=== PATIENT | male | born 1970 | race Caucasian/White ===

== ENCOUNTER → 2020-11-01 14:42 | Outpatient (BNVA) | payer BC, SELFPAY | PROVIDERS: Family Provider Social Worker; PCP Family Medicine; Referring Provider Registered Nurse; Visit Provider Podiatrist Foot & Ankle Surgery | DX: M79.671 Pain in right foot (principal); M79.672 Pain in left foot | CPT/HCPCS: 73630 ==

== ENCOUNTER 2022-12-15 16:25 | Inpatient (IN) | payer BC, SELFPAY ==
[2022-12-15 16:27] VITALS: BP 173/99; PULSE 121; RESP 19; TEMP 36.5; O2SAT 96
--- NOTE | 2022-12-15 16:42 | ED_ITS ---
HPI - Alcohol General: Chief Complaint: Alcohol Stated Complaint: detox/mhe Time Seen by Provider: 12/15/22 16:42 History of Present Illness: Mr. Garcia is a 52-year-old gentleman presenting to the emergency department for concern over alcohol withdrawal symptoms. He reports a number of years of drinking 8-20 beers every day. He went to detox a few weeks ago however thought that he could drink 1 or 2 beers after that and quickly started drinking heavily again. Last drink was 1030 this morning. He endorses shakiness, abdominal pain, nausea, vomiting, generalized malaise. Intensity symptoms is moderate. Course has persisted. Denies history of alcohol withdrawal seizures. He does report seeing bugs previously with alcohol withdrawal. No other specific changes in health, exacerbating, or alleviating factors identified. Last drink: Hours (ago) (Approximately 7 hours ago) Amount of alcohol consumed: Typically drinks 8-20 beers per day Chronic alcohol use: Yes Previous visits for alcohol intoxication: Yes Recent trauma: No Associated symptoms: Reports abdominal pain, nausea, vomiting and other Review of Systems General: Reports: 10 or more systems reviewed and unremarkable except in HPI and below GI: Reports: abdominal pain, nausea and vomiting [facility] ED PFSH: Medical History Anxiety Hypercholesteremia Social History Smoking and tobacco status: current every day smoker Alcohol intake: current Alcohol intake frequency: 0-2 Drinks per Day Alcohol type: beer Physical Exam Const: COMMON NORMALS: alert GENERAL APPEARANCE: cooperative and well developed HENMT: COMMON NORMALS: normocephalic and atraumatic HEAD & SCALP: normocephalic and atraumatic Eye: COMMON NORMALS: conjunctivae normal CONJUNCTIVA: Yes conjunctivae normal SCLERA: sclerae normal Neck/C-Spine: COMMON NORMALS: supple GENERAL: Yes trachea midline Resp: COMMON NORMALS: clear to auscultation bilaterally EFFORT & INS PECTION: Yes able to speak in complete sentences AUSCULTATION: clear to auscultation bilaterally Cardio: COMMON NORMALS: regular rhythm RATE: tachycardic RHYTHM: regular rhythm GI: COMMON NORMALS: Soft to palpation PALPATION: Yes Soft to palpation and No Tenderness to palpation present (GI) Extremity: GENERAL: Yes normal exam except as noted and No edema Neuro: COMMON NORMALS: moves all extremities SENSORIUM/ORIENTATION: Yes alert and No Orientation impaired OTHER: Tremulous Psych: COMMON NORMALS: mental status grossly normal and Normal thought process present THOUGHT PROCESS: Normal thought process present Course Vital Signs: Vital signs: Vital Signs Temperature 97.7 F 12/15/22 16:27 Pulse Rate 81 12/17/22 12:55 Respiratory Rate 19 H 12/15/22 16:27 Blood Pressure 173/99 12/15/22 16:27 Pulse Oximetry 96 12/15/22 16:27 Oxygen Delivery Me thod 12/15/22 20:19 Oxygen Flow Rate 3 12/16/22 07:30 MDM - Alcohol Medical Decision Making 52-year-old gentleman presenting with generalized unwell feeling in the context of alcohol abuse. He exhibits signs and symptoms of withdrawal. Labs with mild hemoconcentration, evidence of dehydration and mild metabolic stress on metabolic panel. Ethyl alcohol is 93 mg/dL and despite this patient is quite symptomatic. Patient treated with antiemetic, thiamine/cholic acid, phenobarbital, fluids and dextrose infusion. On reassessment he appears about the same. Repeat phenobarbital without significant improvement. Benzodiazepine ordered and given history of hallucinations associated with alcohol withdrawal the patient is high risk for DTs and requires inpatient management. The results of ED evaluation were discussed with the patient including plan for admission due to requirement for level of care not available if discharged to prevent significant worsening/deterioration. Patient agreeable with plan. Discussed with hospitalist service who was agreeable to admit patient. Medical Records I reviewed the patient's medical records. Lab Data I reviewed the patient's lab results. 12/15/22 17:00 12/15/22 17:00 Radiology Impressions Chest X-Ray 12/16/22 06:33 IMPRESSION: Left basilar atelectasis versus pneumonia. Clinical correlation is recommended Laboratory Results WBC 8.3 10^3/uL (4.0-10.0) 12/15/22 17:00 RBC 5.07 10^6/uL (4.1-5.3) 12/15/22 17:00 Hgb 16.7 g/dL (11.7-16.6) H 12/15/22 17:00 Hct 48.6 % (42.0-52.0) 12/15/22 17:00 MCV 95.9 fl (80-94) H 12/15/22 17:00 MCH 32.9 pg (28.0-34.0) 12/15/22 17:00 MCHC 34.4 g/dL (30.0-36.0) 12/15/22 17:00 RDW 14.0 % (12.1-15.1) 12/15/22 17:00 Plt Count 282 10^3/cmm (130-400) 12/15/22 17:00 MPV 9.1 fL (7.4-10.4) 12/15/22 17:00 Neut % (Auto) 66.8 % 12/15/22 17:00 Lymph % (Auto) 19.6 % 12/15/22 17:00 [place] % (Auto) 11.0 % 12/15/22 17:00 Eos % (Auto) 0.6 % 12/15/22 17:00 Baso % (Auto) 0.7 % 12/15/22 17:00 Neut # (Auto) 5.53 10^3/uL (1.8-7.7) 12/15/22 17:00 Lymph # (Auto) 1.6 10^3/uL (0.8-4.8) 12/15/22 17:00 [place] # (Auto) 0.9 10^3/uL (0.2-0.9) 12/15/22 17:00 Eos # (Auto) 0.1 10^3/uL (0.0-0.8) 12/15/22 17:00 Baso # (Auto) 0.1 10^3/uL (0.0-0.1) 12/15/22 17:00 Nucleated RBC % (auto) 0 % 12/15/22 17:00 Nucleated RBCs # 0.0 /100WBC 12/15/22 17:00 PT 12.00 SECONDS (12.1-14.9) L 12/15/22 17:00 INR 0.86 (0.8-1.2) 12/15/22 17:00 APTT 28.9 SECONDS (23.9-36.7) 12/15/22 17:00 Sodium 132 mmol/L (136-145) L 12/15/22 17:00 Potassium 4.6 mmol/L (3.5-5.1) 12/15/22 17:00 Chloride 98 mmol/L (98-107) 12/15/22 17:00 Carbon Dioxide 19 mmol/L (22-29) L 12/15/22 17:00 Anion Gap 19.6 (5-19) H 12/15/22 17:00 BUN 8 mg/dL (6-20) 12/15/22 17:00 Creatinine 0.6 mg/dL (0.7-1.2) L 12/15/22 17:00 GFR Calculation 142.0 mL/min (90-130) H 12/15/22 17:00 Glucose 96 mg/dL (65-115) 12/15/22 17:00 Calculated Osmolality 272 mOsm/kg (285-295) L 12/15/22 17:00 Calcium 8.8 mg/dL (8.5-10.5) 12/15/22 17:00 Magnesium 1.9 mg/dL (1.7-2.3) 12/15/22 17:00 Total Bilirubin 0.2 mg/dL (0.15-1.2) 12/15/22 17:00 AST 23 U/L (0-40) 12/15/22 17:00 ALT 22 U/L (0-41) 12/15/22 17:00 Alkaline Phosphatase 84 U/L (40-130) 12/15/22 17:00 Total Protein 6.6 g/dL (6.6-8.7) 12/15/22 17:00 Albumin 4.3 g/dL (3.5-5.2) 12/15/22 17:00 Globulin 2.3 g/dL (1.3-4.6) 12/15/22 17:00 Lipase 26 U/L (13-60) 12/15/22 17:00 TSH 1.00 uIU/mL (0.27-4.20) 12/15/22 17:00 Ethyl Alcohol 93 mg/dL (0-10) H 12/15/22 17:00 Discharge Plan Discharge Patient Disposition: Admitted As Inpatient Admit Provider: Tara Lawrence Clinical Impression: Alcohol withdrawal Condition: Stable Discharge Diet: Regular Discharge Activity: Resume usual activity Coding Level of Care Code ED Supervisor Loading for Chg Fwd Exam Comprehensive
[2022-12-15] MEDS: folic acid 1 mg Tablet PO (17:16)
[2022-12-15] MEDS: sodium chloride 0.9% 1,000 ML 999 ML IV (17:17)
[2022-12-15 17:19] LABS: Basophils # 0.1 10^3/uL (0.0-0.1); Basophils % 0.7 %; Eosinophils # 0.1 10^3/uL (0.0-0.8); Eosinophils % 0.6 %; Hematocrit 48.6 % (42.0-52.0); Hemoglobin 16.7 g/dL (11.7-16.6); Lymphocytes # 1.6 10^3/uL (0.8-4.8); Lymphocytes % 19.6 %; Mean Corpuscular HGB Conc 34.4 g/dL (30.0-36.0); Mean Corpuscular Hemoglobin 32.9 pg (28.0-34.0); Mean Corpuscular Volume 95.9 fl (80-94); Mean Platelet Volume 9.1 fL (7.4-10.4); Monocytes # 0.9 10^3/uL (0.2-0.9); Neutrophils # 5.53 10^3/uL (1.8-7.7); Neutrophils % 66.8 %; Nucleated Red Blood Cells % 0 %; Platelet Count 282 10^3/cmm (130-400); Red Blood Count 5.07 10^6/uL (4.1-5.3); White Blood Count 8.3 10^3/uL (4.0-10.0)
[2022-12-15] MEDS: ondansetron 2 mg/ML SDV 2 mL 4 MG IVP (17:20)
[2022-12-15] MEDS: PHENobarbital 130 mg/mL SDV 1 mL IV ×2 (17:26→18:44)
[2022-12-15] MEDS: dextrose 5 % 500 ML IV (17:30)
[2022-12-15 17:34] LABS: INR 0.86 (0.8-1.2)
[2022-12-15 17:35] LABS: Partial Thromboplastin Time 28.9 SECONDS (23.9-36.7)
[2022-12-15 17:52] LABS: Alanine Aminotransferase 22 U/L (0-41); Albumin Level 4.3 g/dL (3.5-5.2); Alcohol Level 93 mg/dL (0-10); Alkaline Phosphatase 84 U/L (40-130); Anion Gap 19.6 (5-19); Aspartate Amino Transferase 23 U/L (0-40); Blood Urea Nitrogen 8 mg/dL (6-20); Calcium 8.8 mg/dL (8.5-10.5); Carbon Dioxide 19 mmol/L (22-29); Chloride 98 mmol/L (98-107); Globulin 2.3 g/dL (1.3-4.6); Glucose 96 mg/dL (65-115); Lipase 26 U/L (13-60); Magnesium 1.9 mg/dL (1.7-2.3); Osmolality Calculated 272 mOsm/kg (285-295); Potassium 4.6 mmol/L (3.5-5.1); Sodium 132 mmol/L (136-145); Total Bilirubin 0.2 mg/dL (0.15-1.2); Total Protein 6.6 g/dL (6.6-8.7)
[2022-12-15] MEDS: LORazepam 1 mg Tablet PO (19:11)
[2022-12-15 20:19] VITALS: BMI 24.7
[2022-12-15 21:21] VITALS: PULSE 117
[2022-12-15] MEDS: nicotine 14 mg Patch 1 PATCH TRANSDERMA (21:21)
--- NOTE | 2022-12-15 21:24 | PM.HP ---
Providers/Chief Complaint Admitting Physician: Tara Lawrence MD Primary Care Provider: Lissa Bingham DO Chief Complaint: detox/mhe History of Present Illness Reuben Garcia is a 52 year old male with h/o alcohol dependence, was recently in rehab, however since he has been out of rehab he has been drinking beer again. Estimates he drinks between 8-10 beers a day. He was concerned he might be going into alcohol withdrawal as he started having symptoms of nausea shakiness some abdominal pain and therefore presented to the emergency room. Abdominal pain is not localized. No complaints of fever chills chest pain dyspnea palpitations syncope. Review of Systems General: Reports: 10 or more systems reviewed and unremarkable except in HPI and below Const: Denies: fever(s), chills or body aches Eyes: Denies: change in vision, blurry vision or photophobia ENMT: Reports: hoarseness; Denies: throat pain, enlarged tonsils, odynophagia or nasal congestion Card: Denies: chest pain, palpitations, irregular heart rhythm, edema, swelling of feet/ankles, lightheadedness, pre-syncope, dyspnea on exertion or orthopnea Resp: Denies: dyspnea, productive cough, non-productive cough, wheezing, stridor, pain on inspiration, change in phlegm color, hemoptysis or chest congestion GI: Denies: abdominal pain, nausea, vomiting, hematemesis, coffee ground emesis, dysphagia, heartburn, diarrhea, constipation, GI cramping, change in stool character, hematochezia or melena : Denies: flank pain, dysuria, urinary frequency, urinary urgency, urinary hesitancy or hematuria Musc: Denies: neck pain, back pain, extremity pain, joint swelling, joint warmth or deformity Neuro: Denies: headache(s), numbness in extremities, weakness in extremities, sensory changes, difficulty walking, frequent falls, dizziness, vertigo, behavioral changes, Slurred speech present or seizure-like activity Psych: Denies: anxiety, depression, suicidal ideation or homicidal ideation Endo: Denies: polyuria, polydipsia, tired all the time, cold intolerance or hot flashes [place]/Lymph: Denies: easy bruising or easy bleeding Medications/Allergies Home Medications Medication Instructions Recorded Confirmed Last Taken Type atorvastatin 10 mg tablet (Lipitor) 10 mg PO DAILY 11/01/20 11/01/20 Unknown History citalopram 20 mg tablet (Celexa) 20 mg PO DAILY 11/01/20 11/01/20 Unknown History Allergies Allergy/AdvReac Type Severity Reaction Status Date / Time No Known Allergies Allergy Verified 12/15/22 16:32 PFSH Acute PFSH: Medical History Anxiety Hypercholesteremia Social History Smoking and tobacco status: current every day smoker Alcohol intake: current Alcohol intake frequency: 0-2 Drinks per Day Alcohol type: beer Vitals/I&O/Wt Last Vital Signs Temp 97.7 F 12/15/22 16:27 Pulse 121 H 12/15/22 16:27 Resp 19 H 12/15/22 16:27 BP 173/99 12/15/22 16:27 Pulse Ox 96 12/15/22 16:27 O2 Del Method 12/15/22 20:19 12/15/22 12/15/22 12/15/22 06:59 14:59 22:59 Intake Total 1500 / 1500 Balance 1500 / 1500 Weight last 48 hrs Weight 82.696 kg Weight 79.379 kg Physical Exam Narrative: General: No acute distress, AO x3 HEENT: PERRLA, pupils bilaterally equal and reactive, pallors not present Chest: Normal vesicular breath sounds, no added sounds, equal good air entry bilaterally CVS: S1-S2 regular, no murmurs, no tachycardia, no gallops, no rubs Abdomen: Soft, nontender, no organomegaly, bowel sounds present Neuro: No focal deficits, no facial deformity, AO x3, power 5/5 in all limbs Data 12/15/22 17:00 12/15/22 17:00 A&P Assessment and plan (1) Alcohol withdrawal syndrome: Patient presenting due to concerns for alcohol withdrawal after drinking heavily over the past few weeks. Will admit to ICU in view of alcohol withdrawal on CIWA protocol. prn ativan per COIWA protocol for now, will start precedex if needed Initially tachycardic and hypertensive on admission. Bp at current assessment 173/99, HR 121. he received ativan and phenobarbital injection x 2 in the ER Thiamine 100mg po daily, Folic acid 1mg po daily prn zofran for nausea contrast negative lipase, no localizing pain at this time Attestations Medical Necessity Statement*: > 2midnight admission anticipated for management of alcohol withdrawal Coding Level of Care Code Acute Code for g Fwd Diagnoses Alcohol withdrawal syndrome F10.939
[2022-12-15 22:00] VITALS: PULSE 117
--- NOTE | 2022-12-15 23:37 | PC.NURSE ---
Patient arrived from ED via wheelchair. AOx4, mild complaints of nausea. Reported he has been drinking for several days and unable to stop. Patient reported he had went through a detox program earlier this month at [facility]. States that him and his in mid October and he has been unable to cope with the situation. Did report thoughts of wishing he was but denies any thoughts or plans of committing suicide. Patient reports being a 2pack day smoker and requested Nicotine Patch which was admin. Patient has been Calm and had initial CIWA of 6 on the unit.
[2022-12-16 02:48] LABS: Basophils # 0.1 10^3/uL (0.0-0.1); Basophils % 0.6 %; Eosinophils # 0.1 10^3/uL (0.0-0.8); Eosinophils % 0.9 %; Hematocrit 45.9 % (42.0-52.0); Hemoglobin 15.7 g/dL (11.7-16.6); Lymphocytes # 1.9 10^3/uL (0.8-4.8); Lymphocytes % 20.7 %; Mean Corpuscular HGB Conc 34.2 g/dL (30.0-36.0); Mean Corpuscular Volume 96.4 fl (80-94); Mean Platelet Volume 9.3 fL (7.4-10.4); Monocytes # 1.3 10^3/uL (0.2-0.9); Monocytes % 13.6 %; Neutrophils # 5.94 10^3/uL (1.8-7.7); Neutrophils % 63.2 %; Nucleated Red Blood Cells % 0 %; Platelet Count 250 10^3/cmm (130-400); Red Blood Count 4.76 10^6/uL (4.1-5.3); Red Cell Distribution Width 14.2 % (12.1-15.1); White Blood Count 9.4 10^3/uL (4.0-10.0)
--- NOTE | 2022-12-16 03:05 | PC.NURSE ---
Patient has rested comfortably throughout the evening, however, has shown evidence of Obstructive Sleep Apnea. Patient states that he does not feel well rested usually. Advised that a sleep study might be beneficial. 2L of Oxygen applied to help patient rest more comfortably.
[2022-12-16 03:07] LABS: Alanine Aminotransferase 21 U/L (0-41); Albumin Level 3.7 g/dL (3.5-5.2); Alkaline Phosphatase 59 U/L (40-130); Anion Gap 16.5 (5-19); Aspartate Amino Transferase 20 U/L (0-40); Blood Urea Nitrogen 10 mg/dL (6-20); Calcium 8.8 mg/dL (8.5-10.5); Carbon Dioxide 24 mmol/L (22-29); Chloride 101 mmol/L (98-107); Globulin 2.5 g/dL (1.3-4.6); Glomerular Filtration Rate 118.9 mL/min (90-130); Glucose 91 mg/dL (65-115); Osmolality Calculated 283 mOsm/kg (285-295); Potassium 4.5 mmol/L (3.5-5.1); Sodium 137 mmol/L (136-145); Total Bilirubin 0.6 mg/dL (0.15-1.2); Total Protein 6.2 g/dL (6.6-8.7)
[2022-12-16 06:00] VITALS: PULSE 73
--- NOTE | 2022-12-16 06:33 | XRR_ITS ---
PROCEDURE INFORMATION: Exam: XR Chest Exam date and time: 12/16/2022 7:01 AM Age: 52 years old Clinical indication: Condition or disease; Lung condition and disease; Pneumonia; Additional info: Evaluate for pneumonia TECHNIQUE: Imaging protocol: Radiologic exam of the chest. Views: 1 view. COMPARISON: No relevant prior studies available. FINDINGS: Lungs: Streaky left basilar atelectasis, which may represent atelectasis or pneumonia in the adequate clinical setting. Pleural spaces: Unremarkable. No pleural effusion. No pneumothorax. Heart/Mediastinum: Unremarkable. No cardiomegaly. Bones/joints: Unremarkable. XR/XR chest 1V portable [id number] IMPRESSION: Left basilar atelectasis versus pneumonia. Clinical correlation is recommended
[2022-12-16] MEDS: multivitamin therapeutic Tablet 1 TAB PO (08:32)
[2022-12-16] MEDS: atorvastatin 40 mg Tablet 10 MG PO (08:32)
[2022-12-16] MEDS: thiamine 100 mg Tablet PO (08:32)
[2022-12-16] MEDS: folic acid 1 mg Tablet PO (08:32)
[2022-12-16] MEDS: citalopram 20 mg Tablet PO (08:32)
--- NOTE | 2022-12-16 10:28 | PC.CHAP ---
Pastoral Care Encounter/Spiritual Assessment Type of Contact [] Declined employment clerk visit [] Patient/Family/Request visit [] Outpatient visit [] Follow-up visit [] Physician referral [] Code/Alert [x] Routine visit [] Staff referral [] Actively dying [] Patient sleeping [] Family support [] [] Out of room [] Palliative care [] [x] Receiving care in room [] Pre-surgical visit [] Trauma [] Long length of stay [x] ICU visit [] Other: Relational/Emotional Strength [] Patient feels connected with others/family/visitors/staff [] Distress [] Loneliness/isolation [] Abandonment Spirituality of Patient [] Person of Cinda [] Attends Sabianist of their Cinda [] Believes in Prayer [] Reads Bible or Episcopalian materials [] There are Spiritual issues to be addressed Enrichment Director Interventions [x] Prayer [] Active listening [] Non-anxious presence [] Spiritual/emotional support [] Crisis/trauma care [] Spiritual counseling [] Bereavement support [] Provided bereavement packet [] Provided Bible/devotional materials [] Provided toy/stuffed animal, coloring book to patient or family member [] Provided Communion [] Anointing/[place] [] Salvation [x] Completed spiritual assessment [] Other: Impact on Illness or Injury [] Angry [] Fearful [] Anxious [] Often cries [] Exhaustion [] Unable to work [] Unable to attend taoist [] Unable to walk/stand [] Unable to read [] Unable to drive [] Unable to eat/drink [] Unable to sleep [] Unable to be with family [] Patient intubated [] Other: Summary Time spent with patient
--- NOTE | 2022-12-16 11:17 | P.PN_ITS ---
Subjective Subjective: seen this am required phenobarb overnight scored 1 on ciwa this am feels anxious and slightly tremulous when seen last drink yesterday Vitals/I&O/Wt Last Vital Signs Temp 97.7 F 12/15/22 16:27 Pulse 73 12/16/22 06:00 Resp 19 H 12/15/22 16:27 BP 173/99 12/15/22 16:27 Pulse Ox 96 12/15/22 16:27 O2 Del Method 12/15/22 20:19 O2 Flow Rate 3 12/16/22 07:30 12/15/22 12/16/22 12/16/22 22:59 06:59 14:59 Intake Total 1500 / 1500 200 / 1700 Balance 1500 / 1500 200 / 1700 Weight last 48 hrs Weight 82.696 kg Weight 79.379 kg Physical Exam Narrative: General: No acute distress, AO x3 HEENT: PERRLA, pupils bilaterally equal and reactive, pallors not present Chest: Normal vesicular breath sounds, no added sounds, equal good air entry bilaterally CVS: S1-S2 regular, no murmurs, no tachycardia, no gallops, no rubs Abdomen: Soft, nontender, no organomegaly, bowel sounds present Neuro: No focal deficits, no facial deformity, AO x3, power 5/5 in all limbs Data 12/16/22 02:09 12/16/22 02:09 A&P Assessment and plan (1) Alcohol withdrawal syndrome: Plan #Alcohol Withdrawal Patient presenting due to concerns for alcohol withdrawal after drinking heavily over the past few weeks. Will admit to ICU in view of alcohol withdrawal on [facility] protocol. prn ativan per [facility] protocol for now, will start precedex if needed Initially tachycardic and hypertensive on admission. Bp at current assessment 173/99, HR 121. he received ativan and phenobarbital injection x 2 in the ER Thiamine 100mg po daily, Folic acid 1mg po daily prn zofran for nausea contrast negative lipase, no localizing pain at this time required phenobarb overnight patient still in withdrawal period monitor another day in hospital Attestations Medical Necessity Statement*: Continue in hospital monitoring for another day. Continue ICU care. Coding Level of Care Code Acute Code for Chg Fwd Diagnoses Alcohol withdrawal syndrome F10.939
--- NOTE | 2022-12-16 18:42 | PC.NURSE ---
Shift Summary Pt had an uneventful day. He does have some tremors that the pt stated are getting better. He is still on CIWA rating below 7. Pt did not require any prn throughout the shift.
[2022-12-16] MEDS: nicotine 14 mg Patch 1 PATCH TRANSDERMA (20:46)
[2022-12-16 22:00] VITALS: PULSE 79
[2022-12-17 03:19] LABS: Anion Gap 14.3 (5-19); Blood Urea Nitrogen 13 mg/dL (6-20); Carbon Dioxide 24 mmol/L (22-29); Chloride 101 mmol/L (98-107); Glucose 94 mg/dL (65-115); Osmolality Calculated 280 mOsm/kg (285-295); Potassium 4.3 mmol/L (3.5-5.1); Sodium 135 mmol/L (136-145)
[2022-12-17] MEDS: ondansetron 2 mg/ML SDV 2 mL 4 MG IVP (05:13)
[2022-12-17 06:00] VITALS: PULSE 81
[2022-12-17] MEDS: thiamine 100 mg Tablet PO (08:48)
[2022-12-17] MEDS: folic acid 1 mg Tablet PO (08:48)
[2022-12-17] MEDS: atorvastatin 40 mg Tablet 10 MG PO (08:48)
[2022-12-17] MEDS: multivitamin therapeutic Tablet 1 TAB PO (08:48)
[2022-12-17] MEDS: citalopram 20 mg Tablet PO (08:48)
[2022-12-17] MEDS: LORazepam 2 mg Tablet PO (08:52)
--- NOTE | 2022-12-17 10:49 | PC.CHAP ---
Pastoral Care Encounter/Spiritual Assessment Type of Contact [] Declined contact lens technician visit [] Patient/Family/Request visit [] Outpatient visit [] Follow-up visit [] Physician referral [] Code/Alert [x] Routine visit [] Staff referral [] Actively dying [x] Patient sleeping [] Family support [] [] Out of room [] Palliative care [] [] Receiving care in room [] Pre-surgical visit [] Trauma [] Long length of stay [x] ICU visit [] Other: Relational/Emotional Strength [] Patient feels connected with others/family/visitors/staff [] Distress [] Loneliness/isolation [] Abandonment Spirituality of Patient [] Person of Cinda [] Attends Church of their Cinda [] Believes in Prayer [] Reads Bible or Denominational materials [] There are Spiritual issues to be addressed Curriculum Assistant Principal Interventions [x] Prayer [] Active listening [] Non-anxious presence [] Spiritual/emotional support [] Crisis/trauma care [] Spiritual counseling [] Bereavement support [] Provided bereavement packet [] Provided Bible/devotional materials [] Provided toy/stuffed animal, coloring book to patient or family member [] Provided Communion [] Anointing/[place] [] Salvation [x] Completed spiritual assessment [] Other: Impact on Illness or Injury [] Angry [] Fearful [] Anxious [] Often cries [] Exhaustion [] Unable to work [] Unable to attend spiritism [] Unable to walk/stand [] Unable to read [] Unable to drive [] Unable to eat/drink [] Unable to sleep [] Unable to be with family [] Patient intubated [] Other: Summary Time spent with patient
--- NOTE | 2022-12-17 11:59 | PM.DCS ---
Discharge Providers Date of Admission: 12/15/22 20:17 Date of Discharge: December 17, 2022 Attending Provider at Admission: Tara Lawrence MD Attending Provider at Discharge: Nadine Haile MD Primary Care Provider: Lissa Bingham DO Diagnoses at Discharge Discharge Diagnosis (1) Alcohol withdrawal syndrome: Status: Acute Reason for Visit Reason for Visit: detox/mhe Brief History: Reuben Garcia is a 52 year old male with h/o alcohol dependence, was recently in rehab, however since he has been out of rehab he has been drinking beer again.? Estimates he drinks between 8-10 beers a day.? He was concerned he might be going into alcohol withdrawal as he started having symptoms of nausea shakiness some abdominal pain and therefore presented to the emergency room.? Abdominal pain is not localized.? No complaints of fever chills chest pain dyspnea palpitations syncope. Hospital Course Hospital Course Presented with concerns for alcohol withdrawal after drinking heavily for the past few weeks. He says that he has been through alcohol detox and would like to go to alcohol rehab after discharge. He did require phenobarbital injections while hospital stay however in the last 24 hours has not required any Ativan or phenobarbital. He is no longer withdrawing. Blood pressure is stable. Patient no longer anxious. Scoring 0-1 on CIWA scoring. Discussed with him today and he is comfortable in going home. I did discuss with him that if he worsens or has any other symptoms or worsening of existing symptoms he should come back to the hospital. Patient will be discharged home with thiamine and folic acid. He also feels that application for [facility]. compressed gas plant worker also saw the patient. At this point he is stable and will be discharged home. All questions were answered to patient satisfaction. Physical Exam Narrative: General: No acute distress, AO x3 HEENT: PERRLA, pupils bilaterally equal and reactive, pallors not present Chest: Normal vesicular breath sounds, no added sounds, equal good air entry bilaterally CVS: S1-S2 regular, no murmurs, no tachycardia, no gallops, no rubs Abdomen: Soft, nontender, no organomegaly, bowel sounds present Neuro: No focal deficits, no facial deformity, AO x3, power 5/5 in all limbs Discharge Data Studies Completed and Pending Completed Studies During Hospitalization Category Date Time Status CXRP [XR chest 1V portable [id number]] Routine Exams 12/16/22 06:33 Completed Radiology Impressions Chest X-Ray 12/16/22 06:33 IMPRESSION: Left basilar atelectasis versus pneumonia. Clinical correlation is recommended Laboratory Results WBC 9.4 10^3/uL (4.0-10.0) 12/16/22 02:09 RBC 4.76 10^6/uL (4.1-5.3) 12/16/22 02:09 Hgb 15.7 g/dL (11.7-16.6) 12/16/22 02:09 Hct 45.9 % (42.0-52.0) 12/16/22 02:09 MCV 96.4 fl (80-94) H 12/16/22 02:09 MCH 33.0 pg (28.0-34.0) 12/16/22 02:09 MCHC 34.2 g/dL (30.0-36.0) 12/16/22 02:09 RDW 14.2 % (12.1-15.1) 12/16/22 02:09 Plt Count 250 10^3/cmm (130-400) 12/16/22 02:09 MPV 9.3 fL (7.4-10.4) 12/16/22 02:09 Neut % (Auto) 63.2 % 12/16/22 02:09 Lymph % (Auto) 20.7 % 12/16/22 02:09 [place] % (Auto) 13.6 % 12/16/22 02:09 Eos % (Auto) 0.9 % 12/16/22 02:09 Baso % (Auto) 0.6 % 12/16/22 02:09 Neut # (Auto) 5.94 10^3/uL (1.8-7.7) 12/16/22 02:09 Lymph # (Auto) 1.9 10^3/uL (0.8-4.8) 12/16/22 02:09 [place] # (Auto) 1.3 10^3/uL (0.2-0.9) H 12/16/22 02:09 Eos # (Auto) 0.1 10^3/uL (0.0-0.8) 12/16/22 02:09 Baso # (Auto) 0.1 10^3/uL (0.0-0.1) 12/16/22 02:09 Nucleated RBC % (auto) 0 % 12/16/22 02:09 Nucleated RBCs # 0.0 /100WBC 12/16/22 02:09 PT 12.00 SECONDS (12.1-14.9) L 12/15/22 17:00 INR 0.86 (0.8-1.2) 12/15/22 17:00 APTT 28.9 SECONDS (23.9-36.7) 12/15/22 17:00 Sodium 135 mmol/L (136-145) L 12/17/22 02:16 Potassium 4.3 mmol/L (3.5-5.1) 12/17/22 02:16 Chloride 101 mmol/L (98-107) 12/17/22 02:16 Carbon Dioxide 24 mmol/L (22-29) 12/17/22 02:16 Anion Gap 14.3 (5-19) 12/17/22 02:16 BUN 13 mg/dL (6-20) 12/17/22 02:16 Creatinine 0.9 mg/dL (0.7-1.2) 12/17/22 02:16 GFR Calculation 89.0 mL/min (90-130) L 12/17/22 02:16 Glucose 94 mg/dL (65-115) 12/17/22 02:16 Calculated Osmolality 280 mOsm/kg (285-295) L 12/17/22 02:16 Calcium 9.0 mg/dL (8.5-10.5) 12/17/22 02:16 Magnesium 2.0 mg/dL (1.7-2.3) 12/17/22 02:16 Total Bilirubin 0.6 mg/dL (0.15-1.2) 12/16/22 02:09 AST 20 U/L (0-40) 12/16/22 02:09 ALT 21 U/L (0-41) 12/16/22 02:09 Alkaline Phosphatase 59 U/L (40-130) 12/16/22 02:09 Total Protein 6.2 g/dL (6.6-8.7) L 12/16/22 02:09 Albumin 3.7 g/dL (3.5-5.2) 12/16/22 02:09 Globulin 2.5 g/dL (1.3-4.6) 12/16/22 02:09 Lipase 26 U/L (13-60) 12/15/22 17:00 TSH 1.00 uIU/mL (0.27-4.20) 12/15/22 17:00 Ethyl Alcohol 93 mg/dL (0-10) H 12/15/22 17:00 Vitals Last Vital Signs Temp 97.7 F 12/15/22 16:27 Pulse 81 12/17/22 06:00 Resp 19 H 12/15/22 16:27 BP 173/99 12/15/22 16:27 Pulse Ox 96 12/15/22 16:27 O2 Del Method 12/15/22 20:19 O2 Flow Rate 3 12/16/22 07:30 Discharge Plan Discharge Patient Disposition: Home Condition: Stable Prescriptions: New atorvastatin 40 mg Tablet 10 mg PO DAILY 30 Days Qty: 30 0RF citalopram 20 mg Tablet 20 mg PO DAILY 30 Days Qty: 30 0RF Thera 400 mcg Tablet 1 tab PO DAILY Qty: 30 0RF Discharge Orders: Discharge Order (Routine); Ordered 12/17/22 Ordered By: Nadine Haile Referrals: Lissa Bingham DO [Primary Care Provider] - 12/19/22 1:00 pm Discharge Diet: Regular Discharge Activity: Resume usual activity Patient Instructions: Atorvastatin (By mouth), Citalopram (By mouth), Vitamin Combination with Iron, Pediatric Formula (By mouth)..., Opioid Safety Activity Restrictions/Additional Instructions: Please return to ER if symptoms worsen or new symptoms develop. Please follow up with [facility] for alcohol rehab as discussed. Discharge Attestations Time Spent in Discharge Care*: other Quality Metrics Clinical Quality Measures [ No reported AMI, CVA or VTE this stay] Coding Level of Care Code Acute Chg FW DC note Diagnoses Alcohol withdrawal syndrome F10.939
[2022-12-17 12:55] VITALS: PULSE 81
== END 2022-12-17 12:56 | disposition home or self-care (01) | DRG 897 ==
LOC: ER 19:17 → ICU 20:18
PROVIDERS: Admitting Provider Student in an Organized Health Care Education/Training Program; Emergency Provider Emergency Medicine; PCP Family Medicine; Visit Provider Internal Medicine
DX: F10.229 Alcohol dependence with intoxication, unspecified (principal); F10.239 Alcohol dependence with withdrawal, unspecified; Y90.4 Blood alcohol level of 80-99 mg/100 ml; F17.210 Nicotine dependence, cigarettes, uncomplicated
CPT/HCPCS: 36415; 71045; 80048; 80053; 80307; 83690; 83735; 84443; 85025; 85610; 85730; 96374; 96375; 96376; 99285; J2405; J2560; J3411; J7030; J7060

== ENCOUNTER 2024-04-08 16:00 | Inpatient (IN) | payer BC, SELFPAY ==
[2024-04-08] VITALS (13 sets, daily range): BP systolic 127–141; BP diastolic 85–96; PULSE 92–130; RESP 18–33; TEMP 36.8–37; O2SAT 90–96; BMI 24.4; BMI 23.8
[2024-04-08 16:34] LABS: Basophils # 0.1 10^3/uL (0.0-0.1); Eosinophils # 0.1 10^3/uL (0.0-0.8); Eosinophils % 0.9 %; Hematocrit 45.7 % (37-53); Lymphocytes # 2.3 10^3/uL (0.8-4.8); Lymphocytes % 28.5 %; Mean Corpuscular HGB Conc 37.2 g/dL (30-55); Mean Corpuscular Hemoglobin 34.1 pg (27-33); Mean Corpuscular Volume 91.6 fl (82-101); Mean Platelet Volume 8.9 fL (7.4-10.4); Monocytes # 1.4 10^3/uL (0.2-0.9); Monocytes % 17.5 %; Neutrophils # 4.02 10^3/uL (1.8-7.7); Nucleated Red Blood Cells % 0 %; Platelet Count 208 10^3/cmm (157-399); Red Blood Count 4.99 10^6/uL (3.85-5.65); Red Cell Distribution Width 12.1 % (12.1-15.1); White Blood Count 7.89 10^3/uL (3.29-11.43)
[2024-04-08 16:44] LABS: Alanine Aminotransferase 81 U/L (0-41); Albumin Level 3.6 g/dL (3.5-5.2); Alkaline Phosphatase 110 U/L (40-130); Anion Gap 18.3 (5-19); Aspartate Amino Transferase 69 U/L (0-40); Blood Urea Nitrogen 3 mg/dL (6-20); Calcium 8.3 mg/dL (8.5-10.5); Carbon Dioxide 20 mmol/L (22-29); Chloride 85 mmol/L (98-107); Creatinine Clr Calc Pharmacy 136.7467; Globulin 3.3 g/dL (1.3-4.6); Glucose 89 mg/dL (65-115); Lipase 32 U/L (13-60); Osmolality Calculated 244 mOsm/kg (285-295); Potassium 4.3 mmol/L (3.5-5.1); Total Bilirubin 0.3 mg/dL (0.15-1.2); Total Protein 6.9 g/dL (6.6-8.7)
[2024-04-08 16:47] LABS: Sodium 119 mmol/L (136-145)
--- NOTE | 2024-04-08 16:56 | ED_ITS ---
Documented by User: JEFF Hastings 04/08/24 17:13 HPI - Nausea/Vomiting/Diarrhea 2 General: Chief complaint: Nausea/Vomiting/Diarrhea Stated complaint: detox, n,v Time Seen by Provider: 04/08/24 16:42 History of Present Illness: 54-year-old male patient comes in with n ausea and vomiting starting this afternoon. Patient reports withdrawing from alcohol. Patient is a chronic alcoholic for many years. Patient was admitted inpatient last year in November for a similar instance. Patient after discharge did not follow through on rehab and presents today with again wanting to go through withdrawal and then be referred to rehab. Patient CIWA score is 13 at this time. Patient reports increased anxiety and agitation with some sweating and nausea with dry heaves. Patient has some mild tremors when extending his hand. Patient reports no other chronic medical problems. Patient reports tremors and hallucinations when he withdrawals from alcohol. Patient has reported no seizures. Associated nausea: Yes Associated symtoms: Reports nausea Review of Systems 2 General: Reports: 10 or more systems reviewed and unremarkable except in HPI and below Const: Reports: chills GI: Reports: nausea PFSH ED 2 PFSH: Medical History Anxiety Hypercholesteremia Social History Smoking and tobacco/nicotine status: current every day tobacco/nicotine user Alcohol intake: current Alcohol intake frequency: 0-2 Drinks per Day Alcohol type: beer Substance/Drug Use: never Physical Exam 2 Const: COMMON NORMALS: alert HENMT: COMMON NORMALS: normocephalic HEAD & SCALP: normocephalic Neck/C-Spine: COMMON NORMALS: full ROM Resp: COMMON NORMALS: normal respiratory effort Cardio: COMMON NORMALS: regular rate RATE: regular rate GI: COMMON NORMALS: non-tender Extremity: COMMON NORMALS: normal to inspection and full ROM Neuro: SENSORIUM/ORIENTATION: Yes alert Skin: COMMON NORMALS: turgor normal GENERAL SKIN EXAM: turgor normal Course 2 Vital Signs: Vital signs: Vital Signs Temperature 98.2 F 04/08/24 16:07 Pulse Rate 99 04/08/24 16:53 Respiratory Rate 18 04/08/24 16:53 Blood Pressure 141/91 04/08/24 16:07 Pulse Oximetry 95 04/08/24 16:53 Oxygen Delivery Me thod Room Air 04/08/24 16:53 MDM - Nausea/Vomiting/Diarrhea Medical Decision Making Patient presents today with complaints of nausea and vomiting and alcohol withdrawal symptoms. Patient reports last alcohol consumption was 830 this morning. Patient is slightly restless with some increased anxiety and agitation. Patient reports nausea with dry heaves. Patient reports tremors. Patient denies any auditory or visual abnormalities. Differential diagnosis includes anxiety, alcohol withdrawal, electrolyte imbalance, substance use disorder. CBC noted a hemoglobin 17, CMP noted a sodium of 119. Reviewed the lab and patient with Dr. Barlow, attending ER physician, he agreed with plan for patient to be admitted. Discussed patient with Dr. Purcell she excepted patient for admission to the hospital for correction of hyponatremia and monitoring of alcohol withdrawal. Lab Data 04/08/24 16:17 04/08/24 16:17 Laboratory Results WBC 7.89 10^3/uL (3.29-11.43) 04/08/24 16:17 RBC 4.99 10^6/uL (3.85-5.65) 04/08/24 16:17 Hgb 17.00 g/dL (11.27-16.99) H 04/08/24 16:17 Hct 45.7 % (37-53) 04/08/24 16:17 MCV 91.6 fl (82-101) 04/08/24 16:17 MCH 34.1 pg (27-33) H 04/08/24 16:17 MCHC 37.2 g/dL (30-55) 04/08/24 16:17 RDW 12.1 % (12.1-15.1) 04/08/24 16:17 Plt Count 208 10^3/cmm (157-399) 04/08/24 16:17 MPV 8.9 fL (7.4-10.4) 04/08/24 16:17 Neut % (Auto) 51.0 % 04/08/24 16:17 Lymph % (Auto) 28.5 % 04/08/24 16:17 [place] % (Auto) 17.5 % 04/08/24 16:17 Eos % (Auto) 0.9 % 04/08/24 16:17 Baso % (Auto) 1.0 % 04/08/24 16:17 Neut # (Auto) 4.02 10^3/uL (1.8-7.7) 04/08/24 16:17 Lymph # (Auto) 2.3 10^3/uL (0.8-4.8) 04/08/24 16:17 [place] # (Auto) 1.4 10^3/uL (0.2-0.9) H 04/08/24 16:17 Eos # (Auto) 0.1 10^3/uL (0.0-0.8) 04/08/24 16:17 Baso # (Auto) 0.1 10^3/uL (0.0-0.1) 04/08/24 16:17 Nucleated RBC % (auto) 0 % 04/08/24 16:17 Nucleated RBCs # 0.0 /100WBC 04/08/24 16:17 Sodium 119 mmol/L (136-145) L* 04/08/24 16:17 Potassium 4.3 mmol/L (3.5-5.1) 04/08/24 16:17 Chloride 85 mmol/L (98-107) L 04/08/24 16:17 Carbon Dioxide 20 mmol/L (22-29) L 04/08/24 16:17 Anion Gap 18.3 (5-19) 04/08/24 16:17 BUN 3 mg/dL (6-20) L 04/08/24 16:17 Creatinine 0.7 mg/dL (0.7-1.2) 04/08/24 16:17 GFR Calculation 118.0 mL/min (90-130) 04/08/24 16:17 Glucose 89 mg/dL (65-115) 04/08/24 16:17 Calculated Osmolality 244 mOsm/kg (285-295) L 04/08/24 16:17 Calcium 8.3 mg/dL (8.5-10.5) L 04/08/24 16:17 Total Bilirubin 0.3 mg/dL (0.15-1.2) 04/08/24 16:17 AST 69 U/L (0-40) H 04/08/24 16:17 ALT 81 U/L (0-41) H 04/08/24 16:17 Alkaline Phosphatase 110 U/L (40-130) 04/08/24 16:17 Total Protein 6.9 g/dL (6.6-8.7) 04/08/24 16:17 Albumin 3.6 g/dL (3.5-5.2) 04/08/24 16:17 Globulin 3.3 g/dL (1.3-4.6) 04/08/24 16:17 Lipase 32 U/L (13-60) 04/08/24 16:17 Amorphous Sediment Not Reportable 04/08/24 17:26 No radiology studies performed this visit Discharge Plan Discharge Clinical Impression: Acute hyponatremia Alcohol withdrawal Qualifiers: Complication of substance-induced condition: with perceptual disturbance Q ualified Code(s): F10.932 - Alcohol use, unspecified with withdrawal with perceptual disturbance Condition: Stable Prescriptions: No Action Thera 400 mcg Tablet 1 tab PO DAILY Qty: 30 0RF Referrals: Lissa Bingham DO [Primary Care Provider] - Coding Level of Care Code ED Web Applications Architect for Chg [employer]wd Documented by User: Facundo Barlow MD 04/08/24 17:43 HPI - Nausea/Vomiting/Diarrhea 2 General: Chief complaint: Nausea/Vomiting/Diarrhea Stated complaint: detox, n,v Time Seen by Provider: 04/08/24 16:42 PFSH ED 2 PFSH: Medical History Anxiety Hypercholesteremia Social History Smoking and tobacco/nicotine status: current every day tobacco/nicotine user Alcohol intake: current Alcohol intake frequency: 0-2 Drinks per Day Alcohol type: beer Substance/Drug Use: never Course 2 Vital Signs: Vital signs: Vital Signs Temperature 98.2 F 04/08/24 16:07 Pulse Rate 99 04/08/24 16:53 Respiratory Rate 18 04/08/24 16:53 Blood Pressure 141/91 04/08/24 16:07 Pulse Oximetry 95 04/08/24 16:53 Oxygen Delivery Me thod Room Air 04/08/24 16:53 MDM - Nausea/Vomiting/Diarrhea Medical Decision Making Patient presents today with complaints of nausea and vomiting and alcohol withdrawal symptoms. Patient reports last alcohol consumption was 830 this morning. Patient is slightly restless with some increased anxiety and agitation. Patient reports nausea with dry heaves. Patient reports tremors. Patient denies any auditory or visual abnormalities. Differential diagnosis includes anxiety, alcohol withdrawal, electrolyte imbalance, substance use disorder. CBC noted a hemoglobin 17, CMP noted a sodium of 119. Reviewed the lab and patient with Dr. Barlow, attending ER physician, he agreed with plan for patient to be admitted. Discussed patient with Dr. Purcell she excepted patient for admission to the hospital for correction of hyponatremia and monitoring of alcohol withdrawal. Patient presented here with hyponatremia he also has a long history of alcoholism some vomiting likely causing his hyponatremia had discussed his case with the midlevel I agree with his assessment and plan and will admit to the ICU at this time Lab Data 04/08/24 16:17 04/08/24 16:17 Laboratory Results WBC 7.89 10^3/uL (3.29-11.43) 04/08/24 16:17 RBC 4.99 10^6/uL (3.85-5.65) 04/08/24 16:17 Hgb 17.00 g/dL (11.27-16.99) H 04/08/24 16:17 Hct 45.7 % (37-53) 04/08/24 16:17 MCV 91.6 fl (82-101) 04/08/24 16:17 MCH 34.1 pg (27-33) H 04/08/24 16:17 MCHC 37.2 g/dL (30-55) 04/08/24 16:17 RDW 12.1 % (12.1-15.1) 04/08/24 16:17 Plt Count 208 10^3/cmm (157-399) 04/08/24 16:17 MPV 8.9 fL (7.4-10.4) 04/08/24 16:17 Neut % (Auto) 51.0 % 04/08/24 16:17 Lymph % (Auto) 28.5 % 04/08/24 16:17 [place] % (Auto) 17.5 % 04/08/24 16:17 Eos % (Auto) 0.9 % 04/08/24 16:17 Baso % (Auto) 1.0 % 04/08/24 16:17 Neut # (Auto) 4.02 10^3/uL (1.8-7.7) 04/08/24 16:17 Lymph # (Auto) 2.3 10^3/uL (0.8-4.8) 04/08/24 16:17 [place] # (Auto) 1.4 10^3/uL (0.2-0.9) H 04/08/24 16:17 Eos # (Auto) 0.1 10^3/uL (0.0-0.8) 04/08/24 16:17 Baso # (Auto) 0.1 10^3/uL (0.0-0.1) 04/08/24 16:17 Nucleated RBC % (auto) 0 % 04/08/24 16:17 Nucleated RBCs # 0.0 /100WBC 04/08/24 16:17 Sodium 119 mmol/L (136-145) L* 04/08/24 16:17 Potassium 4.3 mmol/L (3.5-5.1) 04/08/24 16:17 Chloride 85 mmol/L (98-107) L 04/08/24 16:17 Carbon Dioxide 20 mmol/L (22-29) L 04/08/24 16:17 Anion Gap 18.3 (5-19) 04/08/24 16:17 BUN 3 mg/dL (6-20) L 04/08/24 16:17 Creatinine 0.7 mg/dL (0.7-1.2) 04/08/24 16:17 GFR Calculation 118.0 mL/min (90-130) 04/08/24 16:17 Glucose 89 mg/dL (65-115) 04/08/24 16:17 Calculated Osmolality 244 mOsm/kg (285-295) L 04/08/24 16:17 Calcium 8.3 mg/dL (8.5-10.5) L 04/08/24 16:17 Total Bilirubin 0.3 mg/dL (0.15-1.2) 04/08/24 16:17 AST 69 U/L (0-40) H 04/08/24 16:17 ALT 81 U/L (0-41) H 04/08/24 16:17 Alkaline Phosphatase 110 U/L (40-130) 04/08/24 16:17 Total Protein 6.9 g/dL (6.6-8.7) 04/08/24 16:17 Albumin 3.6 g/dL (3.5-5.2) 04/08/24 16:17 Globulin 3.3 g/dL (1.3-4.6) 04/08/24 16:17 Lipase 32 U/L (13-60) 04/08/24 16:17 Amorphous Sediment Not Reportable 04/08/24 17:26 Discharge Plan Discharge Clinical Impression: Acute hyponatremia Alcohol withdrawal Qualifiers: Complication of substance-induced condition: with perceptual disturbance Q ualified Code(s): F10.932 - Alcohol use, unspecified with withdrawal with perceptual disturbance Condition: Stable Prescriptions: No Action Thera 400 mcg Tablet 1 tab PO DAILY Qty: 30 0RF Referrals: Lissa Bingham DO [Primary Care Provider] - Coding Level of Care Code ED Web Applications Architect for Jessicag Suad
[2024-04-08] MEDS: sodium chloride 0.9% 1,000 ML 999 ML IV (17:00)
[2024-04-08] MEDS: LORazepam 2 mg/mL INJ 10 mL MDV 1 MG IVP (17:04)
[2024-04-08] MEDS: LORazepam 2 mg/mL INJ 10 mL MDV IVP ×2 (17:28→23:44)
[2024-04-08 17:38] LABS: Add Urine Microscopic? NO
--- NOTE | 2024-04-08 17:51 | P.HP_ITS ---
Providers/Chief Complaint 2 Admitting Physician: Alessandra Purcell MD Primary Care Provider: Lissa Bingham DO Chief Complaint: detox, n,v History of Present Illness Reuben Garcia is a 54 year old male COPD, alcohol use disorder, tobacco use disorder, hypertension, anxiety and depression presenting with acute alcohol withdrawal. He reported having tremors, anxiety, nausea, vomiting, diaphoresis. His last drink was at 0830. He admits to drinking about 1512 ounce cans of beer a day. He denies history of withdrawal seizures but has had DTs. His CIWA score was 13 in the ED. He had left adrenal adenoma resection 3 weeks ago at [facility]. He denies any melena or hematochezia just today but has had it in the past (as recent as 1 week ago). His hemoglobin was 17 g/dL today. His sister thinks that his abdomen is distended. He denies any abdominal pain. Review of Systems 2 Const: Reports: diaphoresis; Denies: fever(s) or chills Eyes: Denies: change in vision ENMT: Denies: throat pain or odynophagia Card: Denies: chest pain, palpitations or edema Resp: Denies: dyspnea, productive cough or wheezing GI: Reports: nausea, vomiting and heartburn; Denies: abdominal pain or constipation : Denies: flank pain or difficulty urinating Musc: Denies: extremity swelling Skin/Breast: Denies: rash or pruritus Neuro: Denies: headache(s), numbness in extremities, weakness in extremities or seizure-like activity Psych: Reports: anxiety; Denies: visual hallucinations or tactile hallucinations Endo: Denies: polyuria or polydipsia Medications/Allergies Home Medications Medication Instructions Recorded Confirmed Last Taken Type multivitamin with folic acid 400 1 tab PO DAILY #30 tabs 12/17/22 12/18/22 Unknown Rx mcg tablet (Thera) Allergies Allergy/AdvReac Type Severity Reaction Status Date / Time No Known Allergies Allergy Verified 12/16/22 08:36 PFSH Acute 2 PFSH: Medical History Anxiety Hypercholesteremia Social History Smoking and tobacco/nicotine status: current every day tobacco/nicotine user Alcohol intake: current Alcohol intake frequency: 0-2 Drinks per Day Alcohol type: beer Substance/Drug Use: never Other [facility] information: Supplemental [facility] Information: COPD Tobacco use disorder Alcohol use disorder Hypertension Anxiety and depression Vitals/I&O/Wt Last Vital Signs Temp 98.2 F 04/08/24 16:07 Pulse 99 04/08/24 16:53 Resp 18 04/08/24 16:53 BP 141/91 04/08/24 16:07 Pulse Ox 95 04/08/24 16:53 O2 Del Method Room Air 04/08/24 16:53 Weight last 48 hrs Weight 81.647 kg Physical Exam 2 Const: COMMON NORMALS: patient oriented x3 and alert Neuro: COMMON NORMALS: patient oriented x3 and no focal motor deficits S PEECH: speech normal MOTOR EXAM: Tremors during motor activity present Psych: COMMON NORMALS: mental status grossly normal, Normal thought process present, cooperative and denies hallucinations Skin: COMMON NORMALS: no rashes or lesions noted Data 04/08/24 16:17 04/08/24 16:17 A&P Assessment and plan (1) Alcohol withdrawal: Qualifiers: Complication of substance-induced condition: with perceptual disturbance Qualified Code(s): F10.932 - Alcohol use, unspecified with withdrawal with perceptual disturbance (2) Acute hyponatremia: (3) Essential hypertension: (4) Anxiety and depression: (5) Tobacco use disorder, continuous: (6) COPD (chronic obstructive pulmonary disease): (7) Alcohol use disorder: Plan Hyponatremia ? Likely related to alcohol abuse ? Also has been vomiting and may be dehydrated ? Serum sodium was 119 mmol/L; baseline sodium is in the low to mid 130s ? Given 1 L normal saline bolus in the ED ? Monitor serum sodium closely (every 4 hours) ? Follow-up UA, urine sodium and urine osmolality Alcohol use disorder with acute withdrawal ? Patient reports drinking 1512 ounce cans of beer a day ? He has a history of DTs ? CIWA protocol ? Ativan as needed; start Librium and Precedex if he continues to have high CIWA scores ? Thiamine, multivitamin, and folic acid ? Counseled on alcohol cessation ? Will order abdominal ultrasound to evaluate for ascites COPD ? Stable on room air at this time ? Monitor O2 sats Tobacco use disorder ? Patient reports smoking over 2 packs of cigarettes a day ? Counseled on smoking cessation ? Will order nicotine patch Hypertension ? He is not on any antihypertensive meds at home ? Monitor blood pressure closely Anxiety and depression ? He is not on any meds at home ? Ativan as needed Attestations 2 Medical Necessity Statement*: Patient warrants hospital admission for hyponatremia (sodium 119 mmol/L) and acute alcohol withdrawal. Patient on IV fluids and requires frequent sodium monitoring. Also on telemetry monitoring. Critical Care Time: The high probability of a clinically significant, sudden or life threatening deterioration of the patient's renal/electrolytes and neurological system(s) required my full and direct attention, intervention and personal management. The critical care time is as shown. This time is in addition to time spent performing any reported procedures but includes the following: [x] Data and vital sign review and interpretation [x] Patient assessment, examination and intervention [x] Documentation [x] Medication orders and management Critical Care Time (min): 40 Coding Level of Care Code Critical Care >/= 30 minutes Diagnoses Alcohol withdrawal F10.932 Complication of substance-induced condition: with perceptual disturbance Acute hyponatremia E87.1 Essential hypertension I10 Anxiety and depression F41.9; F32.A Tobacco use disorder, continuous F17.209 COPD (chronic obstructive pulmonary disease) J44.9 Alcohol use disorder F10.90
[2024-04-08 17:56] LABS: Alcohol Level 225 mg/dL (0-10); Uric Acid 3.8 mg/dL (3.4-7.0)
[2024-04-08 18:02] LABS: Amphetamines Screen Urine Negative (Negative); Barbiturates Screen Urine Negative (Negative); Benzodiazepines Screen Urine Negative (Negative); Cocaine Screen Urine Negative (Negative); Opiate Screen Urine Negative (Negative); PCP Screen Urine Negative (Negative); THC Screen Urine Negative (Negative)
[2024-04-08 18:14] LABS: Bilirubin Urine Neg (Negative); Blood Urine Neg (Negative); Glucose Urine UA Norm (Normal); Ketones Urine Negative (Negative); Leukocyte Esterase Urine Negative (Negative); Nitrate Urine Negative (Negative); Protein Urine Neg (Negative); Specific Gravity, Urine 1.005 (1.005-1.030); Urine Appearance Clear (CLEAR); Urine Color Yellow (Yellow); Urobilinogen Urine Norm (Negative); pH Urine 6 (5-7)
[2024-04-08 18:15] LABS: Acetaminophen < 5.0 ug/mL (10-30); Salicylate < 0.3 mg/dL (3-10)
[2024-04-08 18:24] LABS: Urine Random Sodium 24 mmol/L
--- NOTE | 2024-04-08 18:49 | PC.NURSE ---
Report was called to Jaleesa TOLLIVER in ICU. All questions and concerns were addressed at time of report.
[2024-04-08 18:53] LABS: RBC Urine RARE /hpf (0-2)
[2024-04-08 19:03] LABS: Sodium 122 mmol/L (136-145)
[2024-04-08] MEDS: nicotine 21 mg Patch 1 PATCH TRANSDERMA (22:26)
[2024-04-08 23:02] LABS: Magnesium 1.8 mg/dL (1.7-2.3); Sodium 129 mmol/L (136-145)
[2024-04-08] MEDS: heparin 5,000 unit/mL INJ 1 mL 5000 UNIT SUBCUT (23:27)
[2024-04-08] MEDS: sodium chloride 0.9% 1,000 ML 75 ML IV (23:33)
[2024-04-08] MEDS: ondansetron 2 mg/ML SDV 2 mL 4 MG IVP (23:44)
[2024-04-09] VITALS (25 sets, daily range): BP systolic 114–170; BP diastolic 75–114; PULSE 96–127; RESP 19–29; TEMP 36.8–37.2; O2SAT 90–97; BMI 23.7
[2024-04-09 00:15] LABS: Urine Random Sodium 31 mmol/L
--- NOTE | 2024-04-09 00:23 | PC.NURSE ---
Fluconazole 100mg/50 ml not available in pyxis, documented not given. Fluconazole 200mg/100 ml overrode per fish house worker. 50 mls wasted to give correct dose of 100mg/50 ml.
[2024-04-09 02:16] LABS: Basophils # 0.1 10^3/uL (0.0-0.1); Basophils % 0.7 %; Eosinophils % 0.5 %; Hematocrit 47.1 % (37-53); Lymphocytes # 1.2 10^3/uL (0.8-4.8); Lymphocytes % 14.5 %; Mean Corpuscular HGB Conc 36.7 g/dL (30-55); Mean Corpuscular Hemoglobin 34.1 pg (27-33); Mean Corpuscular Volume 92.7 fl (82-101); Mean Platelet Volume 8.9 fL (7.4-10.4); Monocytes # 1.1 10^3/uL (0.2-0.9); Monocytes % 13.6 %; Neutrophils # 5.72 10^3/uL (1.8-7.7); Neutrophils % 69.8 %; Nucleated Red Blood Cells % 0 %; Platelet Count 202 10^3/cmm (157-399); Red Blood Count 5.08 10^6/uL (3.85-5.65); Red Cell Distribution Width 12.2 % (12.1-15.1); White Blood Count 8.19 10^3/uL (3.29-11.43)
[2024-04-09 02:33] LABS: Alanine Aminotransferase 78 U/L (0-41); Albumin Level 3.6 g/dL (3.5-5.2); Alkaline Phosphatase 93 U/L (40-130); Anion Gap 13.6 (5-19); Aspartate Amino Transferase 65 U/L (0-40); Blood Urea Nitrogen 4 mg/dL (6-20); Calcium 8.9 mg/dL (8.5-10.5); Carbon Dioxide 25 mmol/L (22-29); Chloride 95 mmol/L (98-107); Creatinine Clr Calc Pharmacy 118.5568; Globulin 3.4 g/dL (1.3-4.6); Glomerular Filtration Rate 101.1 mL/min (90-130); Glucose 81 mg/dL (65-115); Magnesium 1.9 mg/dL (1.7-2.3); Osmolality Calculated 264 mOsm/kg (285-295); Potassium 4.6 mmol/L (3.5-5.1); Sodium 129 mmol/L (136-145); Total Bilirubin 0.6 mg/dL (0.15-1.2)
[2024-04-09] MEDS: LORazepam 2 mg/mL INJ 10 mL MDV IVP ×4 (04:28→22:36)
[2024-04-09 06:18] LABS: Sodium 131 mmol/L (136-145)
[2024-04-09] MEDS: thiamine 100 mg Tablet PO (08:11)
[2024-04-09] MEDS: folic acid 1 mg Tablet PO (08:11)
[2024-04-09] MEDS: multivitamin therapeutic Tablet 1 TAB PO (08:12)
[2024-04-09] MEDS: nicotine 21 mg Patch 1 PATCH TRANSDERMA (08:12)
[2024-04-09] MEDS: pantoprazole DR 40 mg Tablet PO (08:12)
[2024-04-09] MEDS: chlordiazePOXIDE 25 mg Capsule PO ×2 (08:20→18:14)
[2024-04-09] MEDS: ipratropium-albuterol 3 mL Neb INHALATION (09:52)
[2024-04-09] MEDS: heparin 5,000 unit/mL INJ 1 mL 5000 UNIT SUBCUT ×2 (10:12→22:37)
[2024-04-09 10:37] LABS: Sodium 130 mmol/L (136-145)
--- NOTE | 2024-04-09 15:12 | PC.NURSE ---
Weakened gait noted at beginning of shift. Educated patient steward/stewardess second light use when wanting to get out of bed. Later Patient removed monitoring equipment, and got out of bed. After, this nurse walked patient around unit with proper monitoring equipment and returned patient to bed without incident. Reinforced teaching of call light use.
--- NOTE | 2024-04-09 19:44 | P.PN_ITS ---
Subjective 2 Subjective: His sodium improved and his NS was discontinued overnight. He decided to the 70s on room air this morning. He uses trilogy at night. He has been tachycardic. He reports mild improvement in his tremors but he still has them. His CIWA scores have been between 8-11. He denies any fever, chills, headache, nausea, vomiting, abdominal pain or other symptoms at this time. Medications: Reviewed: Yes Vitals/I&O/Wt Last Vital Signs Temp 98.9 F 04/09/24 14:00 Pulse 115 H 04/09/24 18:00 Resp 29 H 04/09/24 18:00 BP 170/114 04/09/24 18:00 Pulse Ox 93 04/09/24 17:00 O2 Del Method Nasal Cannula 04/09/24 09:54 O2 Flow Rate 2 04/09/24 09:54 FiO2 95 04/09/24 00:59 04/09/24 04/09/24 04/09/24 06:59 14:59 22:59 Intake Total 43.75 / 1043.75 240 / 240 Output Total 300 / 300 600 / 900 Balance 43.75 / 543.75 -60 / -60 -600 / -660 Weight last 48 hrs Weight 79.469 kg Weight 79.469 kg Weight 79.832 kg Weight 81.647 kg Physical Exam 2 Const: COMMON NORMALS: patient oriented x3 and alert HENMT: COMMON NORMALS: normocephalic and atraumatic HEAD & SCALP: n ormocephalic and atraumatic Eye: COMMON NORMALS: Equal, round and reactive pupils present and EOMs intact bilaterally PUPIL: Yes Equal, round and reactive pupils present Neck/C-Spine: COMMON NORMALS: supple and no JVD Chest: COMMONS NORMALS: normal inspection of the chest Resp: COMMON NORMALS: normal respiratory effort and clear to auscultation bilaterally AUSCULTATION: clear to auscultation bilaterally Cardio: COMMON NORMALS: no JVD, S1 normal heart sound present, S2 normal heart sound present, No gallops present (Cardio) and No clicks present (Cardio) R ATE: tachycardic HEART SOUNDS: S1 normal heart sound present and S2 normal heart sound present GI: COMMON NORMALS: Normal to inspection, nondistended, normoactive bowel sounds present, Soft to palpation and non-tender PALPATION: Yes Soft to palpation Extremity: COMMON NORMALS: no clubbing, cyanosis or edema Neuro: COMMON NORMALS: patient oriented x3 and no focal motor deficits S ENSORIUM/ORIENTATION: Yes alert SPEECH: speech normal MOTOR EXAM: Tremors during motor activity present Psych: COMMON NORMALS: mental status grossly normal, Normal thought process present, cooperative and denies hallucinations THOUGHT PROCESS: Normal thought process present Skin: COMMON NORMALS: no rashes or lesions noted GENERAL SKIN EXAM: no rashes or lesions noted Data 04/09/24 02:05 04/09/24 10:11 A&P Assessment and plan (1) Alcohol withdrawal: Qualifiers: Complication of substance-induced condition: with perceptual disturbance Qualified Code(s): F10.932 - Alcohol use, unspecified with withdrawal with perceptual disturbance (2) Acute hyponatremia: (3) Essential hypertension: (4) Anxiety and depression: (5) Tobacco use disorder, continuous: (6) COPD (chronic obstructive pulmonary disease): (7) Alcohol use disorder: Plan Hyponatremia ? Likely related to alcohol abuse ? Also has been vomiting and may be dehydrated ? Serum sodium was 119 mmol/L; baseline sodium is in the low to mid 130s ? Sodium improved to 131 mmol/L this morning it was 130 mmol/L this afternoon ? IV fluids have been discontinued Alcohol use disorder with acute withdrawal ? Patient reports drinking 1512 ounce cans of beer a day ? He has a history of DTs ? Continue CIWA protocol ? Ativan as needed; started Librium ? Plan to start Precedex if he shows signs of DTs ? Thiamine, multivitamin, and folic acid ? Counseled on alcohol cessation ? Will order abdominal ultrasound to evaluate for ascites COPD ? He desaturated on room air this morning ? He uses trilogy at home; will order BiPAP ? Monitor O2 sats Tobacco use disorder ? Patient reports smoking over 2 packs of cigarettes a day ? Counseled on smoking cessation ? Will order nicotine patch Hypertension ? He is not on any antihypertensive meds at home ? Monitor blood pressure closely Anxiety and depression ? He is not on any meds at home ? Ativan as needed Attestations 2 Medical Necessity Statement*: Patient continues to have signs of alcohol withdrawal. This is day 2 since his last drink. He has a history of DTs and his tachycardia suggest that he may very well developed this during this admission. Coding Level of Care Code Critical Care >/= 30 minutes Diagnoses Alcohol withdrawal F10.932 Complication of substance-induced condition: with perceptual disturbance Acute hyponatremia E87.1 Essential hypertension I10 Anxiety and depression F41.9; F32.A Tobacco use disorder, continuous F17.209 COPD (chronic obstructive pulmonary disease) J44.9 Alcohol use disorder F10.90
[2024-04-09] MEDS: acetaminophen 325 mg Tablet 650 MG PO (22:36)
[2024-04-10] VITALS (10 sets, daily range): BP systolic 111–138; BP diastolic 72–93; PULSE 74–117; RESP 18–24; TEMP 36.7–36.9; O2SAT 88–98; BMI 23.3
--- NOTE | 2024-04-10 06:00 | USR_ITS ---
PROCEDURE INFORMATION: Exam: US Abdomen, Limited; Right Upper Quadrant Exam date and time: 04/10/2024 7:39 AM Age: 54 years old Clinical indication: Screening exam; Other: Cirrhosis; Additional info: Elevate for cirrhosis TECHNIQUE: Imaging protocol: Real time ultrasound of the abdomen with image documentation. Limited exam focused on the right upper quadrant. COMPARISON: No relevant prior studies available. FINDINGS: Liver: Diffuse increase in echogenicity of the liver with loss of normal portal triad fat architecture consistent with steatosis. Somewhat undulating pattern of the hepatic capsule. Gallbladder: Normal. No gallstones. There is no gallbladder wall thickening. Biliary ducts: Normal. No stones. No dilation. Pancreas: Not well visualized. Right kidney: Normal. No mass. No hydronephrosis. US/US liver [id number] IMPRESSION: Diffuse hepatic steatosis with somnolent undulating pattern of hepatic capsule not definitive for cirrhosis.
[2024-04-10 07:26] LABS: Albumin Level 3.2 g/dL (3.5-5.2); Blood Urea Nitrogen 13 mg/dL (6-20); Calcium 8.7 mg/dL (8.5-10.5); Carbon Dioxide 23 mmol/L (22-29); Chloride 99 mmol/L (98-107); Creatinine Clr Calc Pharmacy 104.4585; Glomerular Filtration Rate 88.3 mL/min (90-130); Glucose 83 mg/dL (65-115); Phosphorus 4.4 mg/dL (2.5-4.5); Sodium 133 mmol/L (136-145)
[2024-04-10 07:30] LABS: Anion Gap 15.2 (5-19); Potassium 4.2 mmol/L (3.5-5.1)
[2024-04-10] MEDS: multivitamin therapeutic Tablet 1 TAB PO (09:55)
[2024-04-10] MEDS: chlordiazePOXIDE 25 mg Capsule PO (09:55)
[2024-04-10] MEDS: pantoprazole DR 40 mg Tablet PO (09:55)
[2024-04-10] MEDS: thiamine 100 mg Tablet PO (09:55)
[2024-04-10] MEDS: folic acid 1 mg Tablet PO (09:55)
--- NOTE | 2024-04-10 10:18 | PC.NURSE ---
pt preparing for discharge refused heparin and nicotine ... awaiting discharge orders
--- NOTE | 2024-04-10 10:22 | P.DS_ITS ---
Discharge Providers Date of Admission: 04/08/24 18:01 Date of Discharge: April 10, 2024 Attending Provider at Admission: Alessandra Purcell MD Attending Provider at Discharge: Alessandra Purcell MD Consults: None Primary Care Provider: Lissa Bingham DO Diagnoses at Discharge Discharge Diagnosis (1) Alcohol withdrawal: Status: Acute Qualifiers: Complication of substance-induced condition: with perceptual disturbance Qualified Code(s): F10.932 - Alcohol use, unspecified with withdrawal with perceptual disturbance (2) Acute hyponatremia: Status: Acute (3) Essential hypertension: Status: Acute (4) Anxiety and depression: Status: Acute (5) Tobacco use disorder, continuous: Status: Acute (6) COPD (chronic obstructive pulmonary disease): Status: Acute (7) Alcohol use disorder: Status: Acute Reason for Visit Reason for Visit: detox, n,v Brief History: Please see H&P for full details of presenting condition and initial treatment. Hospital Course Hospital Course This is a 54-year-old male with alcohol use disorder, tobacco use disorder, COPD, sleep apnea hypertension, anxiety and depression. He was admitted for alcohol withdrawal and hyponatremia. His hyponatremia was probably from his alcohol abuse and dehydration from vomiting. His initial sodium was 119 mmol/L and is improved to 1 3 3 mmol/L. He was counseled on alcohol cessation. He did have signs of alcohol withdrawal which have improved. He was discharged home on a Librium taper. He was given list of outpatient resources for his alcohol abuse. Liver ultrasound was done and showed diffuse hepatic steatosis with somnolence undulating pattern of hepatic capsule not definitive for cirrhosis. He is an everyday smoker and he was counseled on smoking cessation. He is not ready to quit at this time. He has COPD and sleep apnea. He uses trilogy at home. His COPD is stable at this time. Physical Exam Narrative: GEN: Alert, no distress Neuro: Oriented x 4, no tremors or asterixis HEENT: Normocephalic, atraumatic, PERRLA, EOMI Neck: Supple, no JVD Cardio: S1, S2, regular rate and rhythm, no murmur, rubs or gallops Respiratory: Normal effort, clear to auscultation bilaterally Abdomen: Soft, nontender, nondistended, normal bowel sounds Extremities: No edema Skin: No rashes or lesions Discharge Data Studies Completed and Pending Completed Studies During Hospitalization [place] [address] Routine Ultrasound 04/10/24 06:00 Completed Pending at discharge Category Date Time Status Osmolality Serum Stat Lab 04/08/24 16:17 Received Osmolality Urine Stat Lab 04/08/24 23:45 Received Radiology Impressions Liver Ultrasound 04/10/24 06:00 IMPRESSION: Diffuse hepatic steatosis with somnolent undulating pattern of hepatic capsule not definitive for cirrhosis. Laboratory Results WBC 8.19 10^3/uL (3.29-11.43) 04/09/24 02:05 RBC 5.08 10^6/uL (3.85-5.65) 04/09/24 02:05 Hgb 17.30 g/dL (11.27-16.99) H 04/09/24 02:05 Hct 47.1 % (37-53) 04/09/24 02:05 MCV 92.7 fl (82-101) 04/09/24 02:05 MCH 34.1 pg (27-33) H 04/09/24 02:05 MCHC 36.7 g/dL (30-55) 04/09/24 02:05 RDW 12.2 % (12.1-15.1) 04/09/24 02:05 Plt Count 202 10^3/cmm (157-399) 04/09/24 02:05 MPV 8.9 fL (7.4-10.4) 04/09/24 02:05 Neut % (Auto) 69.8 % 04/09/24 02:05 Lymph % (Auto) 14.5 % 04/09/24 02:05 [place] % (Auto) 13.6 % 04/09/24 02:05 Eos % (Auto) 0.5 % 04/09/24 02:05 Baso % (Auto) 0.7 % 04/09/24 02:05 Neut # (Auto) 5.72 10^3/uL (1.8-7.7) 04/09/24 02:05 Lymph # (Auto) 1.2 10^3/uL (0.8-4.8) 04/09/24 02:05 [place] # (Auto) 1.1 10^3/uL (0.2-0.9) H 04/09/24 02:05 Eos # (Auto) 0.0 10^3/uL (0.0-0.8) 04/09/24 02:05 Baso # (Auto) 0.1 10^3/uL (0.0-0.1) 04/09/24 02:05 Nucleated RBC % (auto) 0 % 04/09/24 02:05 Nucleated RBCs # 0.0 /100WBC 04/09/24 02:05 Sodium 133 mmol/L (136-145) L 04/10/24 06:04 Potassium 4.2 mmol/L (3.5-5.1) 04/10/24 06:04 Chloride 99 mmol/L (98-107) 04/10/24 06:04 Carbon Dioxide 23 mmol/L (22-29) 04/10/24 06:04 Anion Gap 15.2 (5-19) 04/10/24 06:04 BUN 13 mg/dL (6-20) 04/10/24 06:04 Creatinine 0.9 mg/dL (0.7-1.2) 04/10/24 06:04 GFR Calculation 88.3 mL/min (90-130) L 04/10/24 06:04 Glucose 83 mg/dL (65-115) 04/10/24 06:04 Calculated Osmolality 264 mOsm/kg (285-295) L 04/09/24 02:05 Uric Acid 3.8 mg/dL (3.4-7.0) 04/08/24 16:17 Calcium 8.7 mg/dL (8.5-10.5) 04/10/24 06:04 Phosphorus 4.4 mg/dL (2.5-4.5) 04/10/24 06:04 Magnesium 1.9 mg/dL (1.7-2.3) 04/09/24 02:05 Total Bilirubin 0.6 mg/dL (0.15-1.2) 04/09/24 02:05 AST 65 U/L (0-40) H 04/09/24 02:05 ALT 78 U/L (0-41) H 04/09/24 02:05 Alkaline Phosphatase 93 U/L (40-130) 04/09/24 02:05 Total Protein 7.0 g/dL (6.6-8.7) 04/09/24 02:05 Albumin 3.2 g/dL (3.5-5.2) L 04/10/24 06:04 Globulin 3.4 g/dL (1.3-4.6) 04/09/24 02:05 Lipase 32 U/L (13-60) 04/08/24 16:17 Urine Color Yellow (Yellow) 04/08/24 17:26 Urine Appearance Clear (CLEAR) 04/08/24 17:26 Urine pH 6 (5-7) 04/08/24 17:26 Ur Specific [place] 1.005 (1.005-1.030) 04/08/24 17:26 Urine Protein Neg (Negative) 04/08/24 17:26 Urine Glucose (UA) Norm (Normal) 04/08/24 17:26 Urine Ketones Negative (Negative) 04/08/24 17:26 Urine Blood Neg (Negative) 04/08/24 17:26 Urine Nitrate Negative (Negative) 04/08/24 17:26 Urine Bilirubin Neg (Negative) 04/08/24 17:26 Urine Urobilinogen Norm mg/dL (Negative) 04/08/24 17:26 Ur Leukocyte Esterase Negative (Negative) 04/08/24 17:26 Urine RBC Rare /hpf (0-2) 04/08/24 17:26 Urine WBC None /hpf (0-5) 04/08/24 17:26 Ur Squamous Epith Cells None /hpf (0-5) 04/08/24 17:26 Amorphous Sediment Not Reportable 04/08/24 17:26 Urine Bacteria None /hpf (NONE) 04/08/24 17:26 Urine Mucus None /hpf 04/08/24 17:26 Ur Random Sodium 31 mmol/L 04/08/24 23:45 Salicylates < 0.3 mg/dL (3-10) L 04/08/24 16:17 Urine Opiates Screen Negative ng/mL (Negative) 04/08/24 17:26 Acetaminophen < 5.0 ug/mL (10-30) L 04/08/24 16:17 Ur Barbiturates Screen Negative ng/mL (Negative) 04/08/24 17:26 Ur Phencyclidine Scrn Negative ng/mL (Negative) 04/08/24 17:26 Ur Amphetamines Screen Negative ng/mL (Negative) 04/08/24 17:26 U Benzodiazepines Scrn Negative ng/mL (Negative) 04/08/24 17:26 Urine Cocaine Screen Negative ng/mL (Negative) 04/08/24 17:26 U Marijuana (THC) Screen Negative ng/mL (Negative) 04/08/24 17:26 Ethyl Alcohol 225 mg/dL (0-10) H 04/08/24 16:17 Vitals Last Vital Signs Temp 98.1 F 04/10/24 04:00 Pulse 104 H 04/10/24 10:11 Resp 18 04/10/24 10:11 BP 137/84 04/10/24 08:00 Pulse Ox 92 04/10/24 10:11 O2 Del Method Room Air 04/10/24 10:11 O2 Flow Rate 2 04/09/24 09:54 FiO2 95 04/09/24 00:59 Discharge Plan Discharge Patient Disposition: Home Condition: Stable Prescriptions: New Vitamin B-1 (mononitrate) 100 mg Tablet 100 mg PO DAILY Qty: 30 0RF chlordiazepoxide HCl 25 mg Capsule 25 mg PO BID 1 Days Qty: 2 0RF chlordiazepoxide HCl 25 mg capsule 25 mg PO DAILY 1 Days Qty: 1 0RF Rx Instructions: take 25 mg twice a day for 1 day then 25 mg daily for 1 day Continued hydrocodone-acetaminophen 5-325 mg tablet 1 tab PO Q4H PRN (Reason: Pain) ondansetron HCl 4 mg tablet 4 mg PO Q6H PRN (Reason: Nausea) Trelegy Ellipta 200-62.5-25 mcg blister with device 1 inh INHALATION DAILY Discharge Orders: Discharge Order (Routine); Ordered 04/10/24 Ordered By: Alessandra Purcell Referrals: Crisis Stabilization [Other] (7 days/week 8am-6pm) [facility] [Outside] - 1 week (? Follow up as a walk in at [facility], walk in hours are Friday- Friday from 7:30AM-3:00PM, first come, first seen. Once you do this assessment you will be referred for appropriate services. ) Lissa Bingham DO [Primary Care Provider] - 1 week Discharge Diet: Usual diet Discharge Activity: Resume usual activity Patient Instructions: Thiamine (By mouth) ([facility] Vitamin B1, Nature's..., Opioid Safety Discharge Attestations Time Spent in Discharge Care*: greater than 30 min Time Spent in Smoking Cessation: 3 to 10 minutes Quality Metrics Clinical Quality Measures [ No reported AMI, CVA or VTE this stay] Coding Level of Care Code 06906 Diagnoses Alcohol withdrawal F10.932 Complication of substance-induced condition: with perceptual disturbance Acute hyponatremia E87.1 Essential hypertension I10 Anxiety and depression F41.9; F32.A Tobacco use disorder, continuous F17.209 COPD (chronic obstructive pulmonary disease) J44.9 Alcohol use disorder F10.90
[2024-04-13 15:14] LABS: Osmolality Serum 292 mOsm/kg (278-305)
[2024-04-13 15:14] LABS: Osmolality Urine 128 mOsm/kg (50-1200)
== END 2024-04-10 10:00 | disposition home or self-care (01) | DRG 897 ==
LOC: ER 16:56 → ICU 18:01
PROVIDERS: Emergency Medicine; Internal Medicine; Admitting Provider Student in an Organized Health Care Education/Training Program; Emergency Provider Nurse Practitioner Family; PCP Family Medicine; Visit Provider Student in an Organized Health Care Education/Training Program
DX: F10.232 Alcohol dependence with withdrawal with perceptual disturbance (principal); E87.1 Hypo-osmolality and hyponatremia; Y90.9 Presence of alcohol in blood, level not specified; J44.9 Chronic obstructive pulmonary disease, unspecified; F17.210 Nicotine dependence, cigarettes, uncomplicated; I10 Essential (primary) hypertension; F41.9 Anxiety disorder, unspecified; F32.A Depression, unspecified; E78.00 Pure hypercholesterolemia, unspecified; E86.0 Dehydration; K76.0 Fatty (change of) liver, not elsewhere classified
CPT/HCPCS: 36415; 76705; 80053; 80069; 80306; 80307; 81001; 83690; 83735; 83930; 83935; 84295; 84300; 84550; 85025; 94640; 94664; 96372; 96374; 96376; 97161; 99285; J1644; J2060; J2405; J3411; J7030

== ENCOUNTER 2025-03-17 11:26 | Inpatient (IN) | payer BC, SELFPAY ==
[2025-03-17] VITALS (8 sets, daily range): BP systolic 111–134; BP diastolic 72–86; PULSE 85–130; RESP 17–20; TEMP 36.7–37.4; O2SAT 91–96; BMI 21.3
--- NOTE | 2025-03-17 11:41 | ED_ITS ---
HPI - General Adult 2 General: Chief complaint: General Medical Stated complaint: detox Time Seen by Provider: 03/17/25 11:28 Source: patient Mode of arrival: EMS Limitations: no limitations History of Present Illness: This patient was transported by EMS because he needs detox. He tells me that today his daughter and his ex- showed up at his house and told him that he was going to the hospital. EMS was notified and transported to our facility. He states that he has been a daily drinker of 18-24 beers on a regular basis for some time but has been a drinker off and on for most of his adult life. He states that he has been through detox once before and became sober and had a regular girlfriend and then sometime last year that relationship dissolved and he increased his alcohol consumption. He states he takes Celexa prescribed by nurse practitioner under Dr. Bingham office. He states that he does not take any additional prescribed medications. He denies any concomitant street drug use. He does smoke tobacco. He denies history of any legal issues related to his drinking. He states that his children do not visit him very often and today is the first time he seen his daughter in 6 months. He does live alone. He states he has not been recently sick with fevers chills nausea vomiting or diarrhea. He states that he does fix his own meals but eats very infrequently and he states sometimes it is once or twice a week. He thinks he is lost approximately 25 pounds in the last year. When questioned he admits to thinking of harming himself every day. He states he does not want to live. He also admits that he has weapons in the home. He has never had a prior suicide attempt or hospitalization for mental illness. He denies any history of being medicated during any discontinuation of alcohol and denies any history of seizures during discontinuation of alcohol. Associated symptoms: Deny chest pain, dyspnea, headache(s), nausea, rash, syncope or vomiting Related Data Home Medications ?Medication ?Instructions ?Recorded ?Confirmed albuterol sulfate 90 mcg/actuation 2 puff inhalation Q 6H PRN 03/17/25 03/17/25 aerosol inhaler Shortness Of Breath Or Wheez ing cholecalciferol (vitamin D3) 1,250 50,000 unit PO Q7D 03/17/25 03/17/25 mcg (50,000 unit) capsule citalopram 10 mg tablet 30 mg PO DAILY 03/17/2512/11 Previous Rx's ?Medication ?Instructions ?Recorded thiamine mononitrate (vit B1) 100 100 mg PO DAILY #30 tabs 04/10/24 mg tablet (Vitamin B-1 (mononitrate)) Allergies Allergy/AdvReac Type Severity Reaction Status Date / Time No Known Allergies Allergy Verified 12/16/22 08:36 Review of Systems 2 Const: Denies: fever(s) or chills Eyes: Denies: change in vision ENMT: Denies: throat pain or odynophagia Card: Denies: chest pain, irregular heart rhythm, syncope or pre-syncope Resp: Denies: dyspnea, productive cough, non-productive cough or wheezing GI: Denies: nausea, vomiting or diarrhea : Denies: flank pain, difficulty urinating or dysuria Musc: Denies: neck pain, back pain, extremity pain or extremity swelling Skin/Breast: Denies: rash, pruritus or erythema Neuro: Denies: headache(s), numbness in extremities or weakness in extremities Psych: Reports: anxiety, depression and suicidal ideation; Denies: auditory hallucinations, tactile hallucinations or homicidal ideation PFSH ED 2 PFSH: Medical History Anxiety Hypercholesteremia Social History Smoking and tobacco/nicotine status: current every day tobacco/nicotine user Alcohol intake: current Alcohol intake frequency: 0-2 Drinks per Day Alcohol type: beer Substance/Drug Use: never Physical Exam 2 Narrative: EXAM NARRATIVE: Slightly anxious but does make good eye contact and answers questions faithfully and fluent speech. Const: COMMON NORMALS: average body habitus, patient oriented x3 and alert GENERAL APPEARANCE: cooperative and anxious HENMT: COMMON NORMALS: normocephalic, Normal nasal mucous membranes and turbinates present and oropharynx normal (Dry mucous membranes) HEAD & SCALP: normocephalic FACE & SINUS: face symmetric NOSE: Normal nasal mucous membranes and turbinates present Eye: COMMON NORMALS: Equal, round and reactive pupils present, EOMs intact bilaterally and conjunctivae normal CONJUNCTIVA: Yes conjunctivae normal P UPIL: Yes Equal, round and reactive pupils present Neck/C-Spine: COMMON NORMALS: full ROM, no lymphadenopathy, supple and no JVD Chest: COMMONS NORMALS: normal inspection of the chest Resp: COMMON NORMALS: normal respiratory effort, No retractions and No use of accessory muscles EFFORT & INSPECTION: Yes able to speak in complete sentences Cardio: COMMON NORMALS: no JVD, regular rate, regular rhythm, No murmurs present (Cardio) and Peripheral pulses 2+ throughout RATE: regular rate and tachycardic RHYTHM: regular rhythm PERIPHERAL PULSES: Peripheral pulses 2+ throughout GI: COMMON NORMALS: Normal to inspection, nondistended, normoactive bowel sounds present, Soft to palpation, non-tender and no masses PALPATION: Yes Soft to palpation Back/Pelvis: COMMON NORMALS: thoracic and lumbar spine normal to inspection, no thoracic nor lumbar tenderness and thoraco-lumbar ROM normal Extremity: COMMON NORMALS: normal to inspection, capillary refill normal, no calf tenderness and no pedal edema OTHER: Resting tremor notes right upper extremity Neuro: COMMON NORMALS: patient oriented x3, moves all extremities, no focal motor deficits and no sensory deficits noted SENSORIUM/ORIENTATION: Yes alert Psych: COMMON NORMALS: mental status grossly normal and speech normal S PEECH: Yes normal speech MOOD & AFFECT: Yes sad and Yes constricted affect THOUGHT PROCESS: Circumstantial thought process present THOUGHT CONTENT: Yes Suicidality present Skin: COMMON NORMALS: no rashes or lesions noted and no wounds GENERAL SKIN EXAM: no rashes or lesions noted Course 2 Consultations: Consultation #1: Discussed with Dr. Purcell attending psychiatrist. He is fully on board with placing the patient in [facility] but agrees that likely 24 hours to ensure that there is no untoward effects from his alcohol level reduction is reasonable plan. Time: 13:15 Consultation #2: I discussed with Dr. Lawrence who agreed to placement MedSurg room for managing his withdrawal symptoms and once he is down to a manageable level transferring to psychiatry. Time: 13:35 Vital Signs: Vital signs: Vital Signs Temperature 98.1 F 03/17/25 11:28 Pulse Rate 92 03/17/25 12:10 Respiratory Rate 20 H 03/17/25 12:10 Blood Pressure 125/83 03/17/25 12:10 Pulse Oximetry 92 03/17/25 12:10 Oxygen Delivery Me thod Room Air 03/17/25 12:10 MDM - General Adult Medical Decision Making Patient presents send as noted in history of present illness. History of high levels of daily alcohol use. No prior history of significant issues discontinuing alcohol other than typical mild withdrawal symptoms; no history of seizures etc. Last drink was approximate hour prior to arrival. Other confounder is that he is currently actively suicidal and so that plays into his current presentation. Plan will be to replace thiamine, hydration, symptomatic control of withdrawal symptoms and consult psychiatry etc. at that time. Psychiatry was consulted as well as internal medicine and he will be placed on the hospitalist service for management of any initial withdrawal and then transferred to [facility]. Lab Data I reviewed the patient's lab results. 03/17/25 11:50 03/17/25 11:50 Laboratory Results WBC 6.18 10^3/uL (3.29-11.43) 03/17/25 11:50 RBC 4.93 10^6/uL (3.85-5.65) 03/17/25 11:50 Hgb 16.10 g/dL (11.27-16.99) 03/17/25 11:50 Hct 44.1 % (37-53) 03/17/25 11:50 MCV 89.5 fl (82-101) 03/17/25 11:50 MCH 32.7 pg (27-33) 03/17/25 11:50 MCHC 36.5 g/dL (30-55) 03/17/25 11:50 RDW 12.8 % (12.1-15.1) 03/17/25 11:50 Plt Count 169 10^3/cmm (157-399) 03/17/25 11:50 MPV 9.2 fL (7.4-10.4) 03/17/25 11:50 Neut % (Auto) 63.4 % 03/17/25 11:50 Lymph % (Auto) 17.5 % 03/17/25 11:50 [place] % (Auto) 17.0 % 03/17/25 11:50 Eos % (Auto) 0.6 % 03/17/25 11:50 Baso % (Auto) 1.0 % 03/17/25 11:50 Neut # (Auto) 3.92 10^3/uL (1.8-7.7) 03/17/25 11:50 Lymph # (Auto) 1.1 10^3/uL (0.8-4.8) 03/17/25 11:50 [place] # (Auto) 1.1 10^3/uL (0.2-0.9) H 03/17/25 11:50 Eos # (Auto) 0.0 10^3/uL (0.0-0.8) 03/17/25 11:50 Baso # (Auto) 0.1 10^3/uL (0.0-0.1) 03/17/25 11:50 Nucleated RBC % (auto) 0 % 03/17/25 11:50 Nucleated RBCs # 0.0 /100WBC 03/17/25 11:50 Sodium 132 mmol/L (136-145) L 03/17/25 11:50 Potassium 4.1 mmol/L (3.5-5.1) 03/17/25 11:50 Chloride 97 mmol/L (98-107) L 03/17/25 11:50 Carbon Dioxide 20 mmol/L (22-29) L 03/17/25 11:50 Anion Gap 19.1 (5-19) H 03/17/25 11:50 BUN 4 mg/dL (6-20) L 03/17/25 11:50 Creatinine 0.6 mg/dL (0.7-1.2) L 03/17/25 11:50 GFR Calculation 140.4 mL/min (90-130) H 03/17/25 11:50 Glucose 84 mg/dL (65-115) 03/17/25 11:50 Calculated Osmolality 270 mOsm/kg (285-295) L 03/17/25 11:50 Calcium 8.5 mg/dL (8.5-10.5) 03/17/25 11:50 Magnesium 1.8 mg/dL (1.7-2.3) 03/17/25 11:50 Total Bilirubin 0.4 mg/dL (0.15-1.2) 03/17/25 11:50 AST 168 U/L (0-40) H 03/17/25 11:50 ALT 167 U/L (0-41) H 03/17/25 11:50 Alkaline Phosphatase 102 U/L (40-130) 03/17/25 11:50 Total Protein 6.7 g/dL (6.6-8.7) 03/17/25 11:50 Albumin 3.4 g/dL (3.5-5.2) L 03/17/25 11:50 Globulin 3.3 g/dL (1.3-4.6) 03/17/25 11:50 Urine Color Yellow (Yellow) 03/17/25 13:06 Urine Appearance Clear (CLEAR) 03/17/25 13:06 Urine pH 6.0 (5-7) 03/17/25 13:06 Ur Specific [place] 1.003 (1.005-1.030) L 03/17/25 13:06 Urine Protein Negative (Negative) 03/17/25 13:06 Urine Glucose (UA) Negative (Normal) 03/17/25 13:06 Urine Ketones Negative (Negative) 03/17/25 13:06 Urine Blood Negative (Negative) 03/17/25 13:06 Urine Nitrate Negative (Negative) 03/17/25 13:06 Urine Bilirubin Negative (Negative) 03/17/25 13:06 Urine Urobilinogen 0.2 mg/dL (Negative) 03/17/25 13:06 Ur Leukocyte Esterase Negative (Negative) 03/17/25 13:06 Urine RBC 0-2 /hpf (0-2) 03/17/25 13:06 Urine WBC 0-5 /hpf (0-5) 03/17/25 13:06 Ur Squamous Epith Cells 0-5 /hpf (0-5) 03/17/25 13:06 Amorphous Sediment Not Reportable 03/17/25 13:06 Urine Bacteria None seen /hpf (NONE) 03/17/25 13:06 Hyaline Casts 0.81 /lpf 03/17/25 13:06 Salicylates < 0.3 mg/dL (3-10) L 03/17/25 11:50 Acetaminophen < 5.0 ug/mL (10-30) L 03/17/25 11:50 Ethyl Alcohol 315 mg/dL (0-10) H* 03/17/25 11:50 No radiology studies performed this visit EKG Data EKG 1: I personally reviewed and interpreted this EKG as follows: Interpretation: Contemporaneous review of his EKG reveals ventricular rate of 86 bpm. Normal SC interval, QRS duration, corrected QT interval. Normal axis. No acute ST-T wave changes. Discharge Plan Discharge Patient Disposition: Admitted As Inpatient Clinical Impression: Alcohol use disorder, Suicidal ideation Condition: Stable Coding Level of Care Code ED Sterile Technician for Belén Borjas
[2025-03-17 11:55] LABS: Basophils # 0.1 10^3/uL (0.0-0.1); Eosinophils % 0.6 %; Hematocrit 44.1 % (37-53); Lymphocytes # 1.1 10^3/uL (0.8-4.8); Lymphocytes % 17.5 %; Mean Corpuscular HGB Conc 36.5 g/dL (30-55); Mean Corpuscular Hemoglobin 32.7 pg (27-33); Mean Corpuscular Volume 89.5 fl (82-101); Mean Platelet Volume 9.2 fL (7.4-10.4); Monocytes # 1.1 10^3/uL (0.2-0.9); Neutrophils # 3.92 10^3/uL (1.8-7.7); Neutrophils % 63.4 %; Nucleated Red Blood Cells % 0 %; Platelet Count 169 10^3/cmm (157-399); Red Blood Count 4.93 10^6/uL (3.85-5.65); Red Cell Distribution Width 12.8 % (12.1-15.1); White Blood Count 6.18 10^3/uL (3.29-11.43)
[2025-03-17] MEDS: famotidine 20 mg/2 mL INJ IVP (12:01)
[2025-03-17] MEDS: lactated ringers 1,000 ML 999 ML IV (12:01)
[2025-03-17] MEDS: thiamine 100 mg/mL 2mL SDV IVP (12:01)
[2025-03-17] MEDS: LORazepam 1 mg Tablet PO (12:01)
[2025-03-17 12:26] LABS: Alanine Aminotransferase 167 U/L (0-41); Albumin Level 3.4 g/dL (3.5-5.2); Alkaline Phosphatase 102 U/L (40-130); Anion Gap 19.1 (5-19); Aspartate Amino Transferase 168 U/L (0-40); Blood Urea Nitrogen 4 mg/dL (6-20); Calcium 8.5 mg/dL (8.5-10.5); Carbon Dioxide 20 mmol/L (22-29); Chloride 97 mmol/L (98-107); Globulin 3.3 g/dL (1.3-4.6); Glomerular Filtration Rate 140.4 mL/min (90-130); Glucose 84 mg/dL (65-115); Magnesium 1.8 mg/dL (1.7-2.3); Osmolality Calculated 270 mOsm/kg (285-295); Potassium 4.1 mmol/L (3.5-5.1); Sodium 132 mmol/L (136-145); Total Bilirubin 0.4 mg/dL (0.15-1.2); Total Protein 6.7 g/dL (6.6-8.7)
[2025-03-17 12:27] LABS: Acetaminophen < 5.0 ug/mL (10-30); Salicylate < 0.3 mg/dL (3-10)
[2025-03-17 12:28] LABS: Alcohol Level 315 mg/dL (0-10)
--- NOTE | 2025-03-17 12:42 | ECG_ITS ---
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 Measurements Intervals [place] Rate: 86 P: 65 MI: 139 QRS: 77 QRSD: 93 T: 80 QT: 351 QTc: 420 Interpretive Statements SINUS RHYTHM No previous ECG available for comparison Electronically Signed On 03-21-2025 09:28:10 CDT by Edmundo Cervantes M.D. [email or web address]
--- NOTE | 2025-03-17 12:50 | PC.NURSE ---
pt denies any weapons on person that could harm himself or others.
--- NOTE | 2025-03-17 13:12 | PC.NURSE ---
pt changed into green paper scrubs and belonging inventoried via security and this nurse.
--- NOTE | 2025-03-17 13:17 | PC.NURSE ---
pt had tachycardic episode of 140s-150s upon standing, decreased to NSR 92 when supine again.
[2025-03-17 13:19] LABS: Bilirubin Urine Negative (Negative); Blood Urine Negative (Negative); Glucose Urine UA Negative (Normal); Ketones Urine Negative (Negative); Leukocyte Esterase Urine Negative (Negative); Nitrate Urine Negative (Negative); Protein Urine Negative (Negative); Specific Gravity, Urine 1.003 (1.005-1.030); Urine Appearance Clear (CLEAR); Urine Color Yellow (Yellow); Urobilinogen Urine 0.2 mg/dL (Negative)
[2025-03-17 13:21] LABS: Add Urine Microscopic? YES; Bacteria Urine None Seen /hpf; Hyaline Casts Urine 0.81 /lpf; RBC Urine 0-2 /hpf (0-2); Squamous Epithelial Cell Urine 0-5 /hpf (0-5); WBC Urine 0-5 /hpf (0-5)
[2025-03-17 13:32] LABS: Add Urine Culture? No
--- NOTE | 2025-03-17 14:39 | PC.NURSE ---
96 hour hold rights read and reviewed with patient. Patient verbalized understandings. Copy of rights given to patient. Wayne from security present during reading of rights.
--- NOTE | 2025-03-17 16:02 | PM.HP ---
Providers/Chief Complaint Admitting Physician: Tara Lawrence MD Primary Care Provider: Lissa Bingham DO Chief Complaint: detox History of Present Illness Reuben Garcia is a 55 year old male with h/o alcohol dependence, drinks 18-24 beers every day. He was brought into the emergency room today after his family staged an intervention related to his alcohol drinking. Upon presenting to the emergency room he endorsed suicidal ideation to the emergency room physician where he stated that he thinks about harming himself every day. It appears he has firearms in the home. He stated he wanted help for thoughts of suicide. Psychiatry service was consulted and recommended admission in view of his active suicidal ideation. Since his alcohol level is currently 315 and he is anticipated to go through withdrawal, requested observation with medicine service for the initial part of his hospitalization. At this time he denies any specific complaints. Review of Systems General: Reports: 10 or more systems reviewed and unremarkable except in HPI and below Const: Denies: fever(s), chills or body aches Eyes: Denies: change in vision, blurry vision or photophobia ENMT: Reports: hoarseness; Denies: throat pain, enlarged tonsils, odynophagia or nasal congestion Card: Denies: chest pain, palpitations, irregular heart rhythm, edema, swelling of feet/ankles, lightheadedness, pre-syncope, dyspnea on exertion or orthopnea Resp: Denies: dyspnea, productive cough, non-productive cough, wheezing, stridor, pain on inspiration, change in phlegm color, hemoptysis or chest congestion GI: Denies: abdominal pain, nausea, vomiting, hematemesis, coffee ground emesis, dysphagia, heartburn, diarrhea, constipation, GI cramping, change in stool character, hematochezia or melena : Denies: flank pain, dysuria, urinary frequency, urinary urgency, urinary hesitancy or hematuria Musc: Denies: neck pain, back pain, extremity pain, joint swelling, joint warmth or deformity Neuro: Denies: headache(s), numbness in extremities, weakness in extremities, sensory changes, difficulty walking, frequent falls, dizziness, vertigo, behavioral changes, Slurred speech present or seizure-like activity Psych: Denies: anxiety, depression, suicidal ideation or homicidal ideation Endo: Denies: polyuria, polydipsia, tired all the time, cold intolerance or hot flashes Pedro/Lymph: Denies: easy bruising or easy bleeding Medications/Allergies Home Medications ?Medication ?Instructions ?Recorded ?Confirmed ?Last Taken ?Type thiamine mononitrate (vit B1) 100 100 mg PO DAILY #30 tabs 04/10/24 03/17/25 Unknown Rx mg tablet (Vitamin B-1 (mononitrate)) albuterol sulfate 90 mcg/actuation 2 puff inhalation Q6H PRN 03/17/25 03/17/25 Unknown History aerosol inhaler Shortness Of Breath Or Wheezing cholecalciferol (vitamin D3) 1,250 50,000 unit PO Q7D 03/17/25 03/17/25 Unknown History mcg (50,000 unit) capsule citalopram 10 mg tablet 30 mg PO DAILY 03/17/25 03/17/25 Unknown History Allergies Allergy/AdvReac Type Severity Reaction Status Date / Time No Known Allergies Allergy Verified 12/16/22 08:36 PFSH Acute PFSH: Medical History Anxiety Hypercholesteremia Social History Smoking and tobacco/nicotine status: current every day tobacco/nicotine user Alcohol intake: current Alcohol intake frequency: 0-2 Drinks per Day Alcohol type: beer Substance/Drug Use: never Vitals/I&O/Wt Last Vital Signs Temp 98.1 F 03/17/25 11:28 Pulse 121 H 03/17/25 14:36 Resp 20 H 03/17/25 14:36 BP 115/75 03/17/25 14:36 Pulse Ox 94 03/17/25 14:36 O2 Del Method Room Air 03/17/25 12:10 Physical Exam Narrative: General: No acute distress, AO x3 HEENT: PERRLA, pupils bilaterally equal and reactive, pallors not present Chest: Normal vesicular breath sounds, no added sounds, equal good air entry bilaterally CVS: S1-S2 regular, no murmurs, no tachycardia, no gallops, no rubs Abdomen: Soft, nontender, no organomegaly, bowel sounds present Neuro: No focal deficits, no facial deformity, AO x3, power 5/5 in all limbs Data 03/17/25 11:50 03/17/25 11:50 Other Labs: Laboratory Results WBC 6.18 10^3/uL (3.29-11.43) 03/17/25 11:50 RBC 4.93 10^6/uL (3.85-5.65) 03/17/25 11:50 Hgb 16.10 g/dL (11.27-16.99) 03/17/25 11:50 Hct 44.1 % (37-53) 03/17/25 11:50 MCV 89.5 fl (82-101) 03/17/25 11:50 MCH 32.7 pg (27-33) 03/17/25 11:50 MCHC 36.5 g/dL (30-55) 03/17/25 11:50 RDW 12.8 % (12.1-15.1) 03/17/25 11:50 Plt Count 169 10^3/cmm (157-399) 03/17/25 11:50 MPV 9.2 fL (7.4-10.4) 03/17/25 11:50 Neut % (Auto) 63.4 % 03/17/25 11:50 Lymph % (Auto) 17.5 % 03/17/25 11:50 [place] % (Auto) 17.0 % 03/17/25 11:50 Eos % (Auto) 0.6 % 03/17/25 11:50 Baso % (Auto) 1.0 % 03/17/25 11:50 Neut # (Auto) 3.92 10^3/uL (1.8-7.7) 03/17/25 11:50 Lymph # (Auto) 1.1 10^3/uL (0.8-4.8) 03/17/25 11:50 [place] # (Auto) 1.1 10^3/uL (0.2-0.9) H 03/17/25 11:50 Eos # (Auto) 0.0 10^3/uL (0.0-0.8) 03/17/25 11:50 Baso # (Auto) 0.1 10^3/uL (0.0-0.1) 03/17/25 11:50 Nucleated RBC % (auto) 0 % 03/17/25 11:50 Nucleated RBCs # 0.0 /100WBC 03/17/25 11:50 Sodium 132 mmol/L (136-145) L 03/17/25 11:50 Potassium 4.1 mmol/L (3.5-5.1) 03/17/25 11:50 Chloride 97 mmol/L (98-107) L 03/17/25 11:50 Carbon Dioxide 20 mmol/L (22-29) L 03/17/25 11:50 Anion Gap 19.1 (5-19) H 03/17/25 11:50 BUN 4 mg/dL (6-20) L 03/17/25 11:50 Creatinine 0.6 mg/dL (0.7-1.2) L 03/17/25 11:50 GFR Calculation 140.4 mL/min (90-130) H 03/17/25 11:50 Glucose 84 mg/dL (65-115) 03/17/25 11:50 Calculated Osmolality 270 mOsm/kg (285-295) L 03/17/25 11:50 Calcium 8.5 mg/dL (8.5-10.5) 03/17/25 11:50 Magnesium 1.8 mg/dL (1.7-2.3) 03/17/25 11:50 Total Bilirubin 0.4 mg/dL (0.15-1.2) 03/17/25 11:50 AST 168 U/L (0-40) H 03/17/25 11:50 ALT 167 U/L (0-41) H 03/17/25 11:50 Alkaline Phosphatase 102 U/L (40-130) 03/17/25 11:50 Total Protein 6.7 g/dL (6.6-8.7) 03/17/25 11:50 Albumin 3.4 g/dL (3.5-5.2) L 03/17/25 11:50 Globulin 3.3 g/dL (1.3-4.6) 03/17/25 11:50 Urine Color Yellow (Yellow) 03/17/25 13:06 Urine Appearance Clear (CLEAR) 03/17/25 13:06 Urine pH 6.0 (5-7) 03/17/25 13:06 Ur Specific [place] 1.003 (1.005-1.030) L 03/17/25 13:06 Urine Protein Negative (Negative) 03/17/25 13:06 Urine Glucose (UA) Negative (Normal) 03/17/25 13:06 Urine Ketones Negative (Negative) 03/17/25 13:06 Urine Blood Negative (Negative) 03/17/25 13:06 Urine Nitrate Negative (Negative) 03/17/25 13:06 Urine Bilirubin Negative (Negative) 03/17/25 13:06 Urine Urobilinogen 0.2 mg/dL (Negative) 03/17/25 13:06 Ur Leukocyte Esterase Negative (Negative) 03/17/25 13:06 Urine RBC 0-2 /hpf (0-2) 03/17/25 13:06 Urine WBC 0-5 /hpf (0-5) 03/17/25 13:06 Ur Squamous Epith Cells 0-5 /hpf (0-5) 03/17/25 13:06 Amorphous Sediment Not Reportable 03/17/25 13:06 Urine Bacteria None seen /hpf (NONE) 03/17/25 13:06 Hyaline Casts 0.81 /lpf 03/17/25 13:06 Salicylates < 0.3 mg/dL (3-10) L 03/17/25 11:50 Acetaminophen < 5.0 ug/mL (10-30) L 03/17/25 11:50 Ethyl Alcohol 315 mg/dL (0-10) H* 03/17/25 11:50 A&P Assessment and plan (1) Suicidal ideation: (2) Alcohol use disorder: (3) Alcoholic hepatitis: Plan 55-year-old male with a history of alcohol abuse disorder currently presented to the hospital with suicidal ideation. He is being admitted to the hospital for definitive management of suicidal ideation. He is found to be intoxicated with alcohol with a blood alcohol level of over 300 at this time. At the time my assessment his heart rate is 121 bpm in a sinus rhythm, anticipate early signs of alcohol withdrawal. Patient is being admitted to the medicine service before being transferred to neuropsychiatrist service due to management of alcohol withdrawal. Admit to [facility] CIWA's monitoring As needed Ativan based on CIWA scores per CIWA protocol. Start Librium 25 mg p.o. every 8 hours Noted deranged LFTs, likely to be alcoholic hepatitis. Ultrasound from 1 year ago showed diffuse fatty liver, possibly early signs of cirrhosis but do no definite evidence at that time. DVT prophylaxis: Low risk Full code PDMP PDMP Reviewed: Not Reviewed Attestations Medical Necessity Statement*: Greater than 2 midnight admission is anticipated for management of alcohol withdrawal and suicidal ideation. Coding Level of Care Code Acute Code for [facility] Fwd Diagnoses Suicidal ideation R45.851 Alcohol use disorder F10.90 Alcoholic hepatitis K70.10
[2025-03-17 16:54] LABS: Hepatitis A Antibody IgM Non-Reactive (Nonreactive); Hepatitis B Surface AB < 3.5 (11.5-1000); Hepatitis B Surface Antigen Non-Reactive (Nonreactive); Hepatitis C Virus Antibody Non-Reactive (Nonreactive)
[2025-03-17] MEDS: thiamine 100 mg/mL 2mL SDV IM (17:00)
[2025-03-17] MEDS: chlordiazePOXIDE 25 mg Capsule PO ×2 (17:00→23:11)
--- NOTE | 2025-03-17 17:11 | PC.NURSE ---
@[id number] report given [facility] on [facility]. pt transported to [facility] via stretcher; belongings sent with pt.
[2025-03-17] MEDS: pantoprazole DR 40 mg Tablet PO (17:53)
[2025-03-17] MEDS: nicotine 14 mg Patch 1 PATCH TRANSDERMA (18:39)
[2025-03-17 21:08] LABS: Hepatitis B Core AB, Total Equivocal (Nonreactive)
[2025-03-18] VITALS (8 sets, daily range): BP systolic 107–159; BP diastolic 72–105; PULSE 93–149; RESP 16–19; TEMP 36.4–37.1; O2SAT 92–94
[2025-03-18 05:12] LABS: Basophils % 0.5 %; Eosinophils % 0.1 %; Hematocrit 42.5 % (37-53); Lymphocytes # 0.8 10^3/uL (0.8-4.8); Mean Corpuscular HGB Conc 35.3 g/dL (30-55); Mean Corpuscular Hemoglobin 32.4 pg (27-33); Mean Corpuscular Volume 91.8 fl (82-101); Mean Platelet Volume 9.7 fL (7.4-10.4); Monocytes % 13.6 %; Neutrophils # 5.39 10^3/uL (1.8-7.7); Nucleated Red Blood Cells % 0 %; Platelet Count 143 10^3/cmm (157-399); Red Blood Count 4.63 10^6/uL (3.85-5.65); Red Cell Distribution Width 13.2 % (12.1-15.1); White Blood Count 7.29 10^3/uL (3.29-11.43)
[2025-03-18 05:19] LABS: INR 0.88 (0.8-1.2)
[2025-03-18 05:27] LABS: Alanine Aminotransferase 152 U/L (0-41); Albumin Level 3.1 g/dL (3.5-5.2); Alkaline Phosphatase 97 U/L (40-130); Aspartate Amino Transferase 133 U/L (0-40); Blood Urea Nitrogen 10 mg/dL (6-20); Calcium 8.5 mg/dL (8.5-10.5); Carbon Dioxide 22 mmol/L (22-29); Chloride 98 mmol/L (98-107); Creatinine Clr Calc Pharmacy 96.7787; Globulin 3.2 g/dL (1.3-4.6); Glomerular Filtration Rate 87.9 mL/min (90-130); Glucose 87 mg/dL (65-115); Osmolality Calculated 274 mOsm/kg (285-295); Sodium 133 mmol/L (136-145); Total Bilirubin 0.8 mg/dL (0.15-1.2); Total Protein 6.3 g/dL (6.6-8.7)
[2025-03-18] MEDS: ondansetron 2 mg/ML SDV 2 mL 4 MG IVP ×2 (07:46→17:22)
[2025-03-18] MEDS: thiamine 100 mg Tablet PO (08:24)
[2025-03-18] MEDS: pantoprazole DR 40 mg Tablet PO ×2 (08:24→17:21)
[2025-03-18] MEDS: nicotine 14 mg Patch 1 PATCH TRANSDERMA (08:24)
[2025-03-18] MEDS: folic acid 1 mg Tablet PO (08:24)
[2025-03-18] MEDS: chlordiazePOXIDE 25 mg Capsule PO ×3 (08:24→23:36)
[2025-03-18] MEDS: multivitamin therapeutic Tablet 1 TAB PO (08:24)
--- NOTE | 2025-03-18 09:07 | ECG_ITS ---
[facility] Test Date: 2025-03-18 Pat Name: Reuben Garcia Department: Room: 260 Gender: Male [employer]: : [id number] Requested By: Tara Lawrence Order Number: [id number] Leatha MD: Edmundo Cervantes M.D. Measurements Intervals [place] Rate: 97 P: 68 CT: 127 QRS: 74 QRSD: 94 T: 77 QT: 335 QTc: 427 Interpretive Statements SINUS RHYTHM Compared to ECG 03/17/2025 12:42:45 No significant changes Electronically Signed On 03-21-2025 09:27:30 CDT by Edmundo Cervantes M.D. [email or web address]
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
--- NOTE | 2025-03-18 14:36 | P.PN_ITS ---
Subjective 2 Subjective: Patient is noted to be exhibiting signs of withdrawal. He has coarse tremors, he is tachycardic with a heart rate of 107, blood pressure is elevated at 159/91 mmHg. He was having some dry heaves this morning. He is receiving as needed Ativan per CIWA scale estimation. Medications: Reviewed: Yes Vitals/I&O/Wt Last Vital Signs Temp 98.2 F 03/18/25 11:07 Pulse 107 H 03/18/25 11:07 Resp 19 H 03/18/25 11:07 BP 159/91 03/18/25 11:07 Pulse Ox 94 03/18/25 11:07 O2 Del Method Room Air 03/18/25 11:07 03/17/25 03/18/25 03/18/25 22:59 06:59 14:59 Intake Total 1880 / 1880 600 / 2480 520 / 520 Balance 1880 / 1880 600 / 2480 520 / 520 Weight last 48 hrs Weight 69.354 kg Weight 69.445 kg Physical Exam 2 Narrative: General: No acute distress, AO x3 HEENT: PERRLA, pupils bilaterally equal and reactive, pallors not present Chest: Normal vesicular breath sounds, no added sounds, equal good air entry bilaterally CVS: S1-S2 regular, no murmurs, no tachycardia, no gallops, no rubs Abdomen: Soft, nontender, no organomegaly, bowel sounds present Neuro: No focal deficits, no facial deformity, AO x3, power 5/5 in all limbs Data 03/18/25 04:44 03/18/25 04:44 A&P Assessment and plan (1) Suicidal ideation: (2) Alcohol use disorder: (3) Alcoholic hepatitis: Plan 55-year-old male with a history of alcohol abuse disorder currently presented to the hospital with suicidal ideation. He is being admitted to the hospital for definitive management of suicidal ideation. He is found to be intoxicated with alcohol with a blood alcohol level of over 300 at this time. At the time my assessment his heart rate is 121 bpm in a sinus rhythm, anticipate early signs of alcohol withdrawal. Patient is being admitted to the medicine service before being transferred to neuropsychiatrist service due to management of alcohol withdrawal. Admit to [facility] CIWA's monitoring As needed Ativan based on CIWA scores per CIWA protocol. Start Librium 25 mg p.o. every 8 hours Noted deranged LFTs, likely to be alcoholic hepatitis. Ultrasound from 1 year ago showed diffuse fatty liver, possibly early signs of cirrhosis but do no definite evidence at that time. DVT prophylaxis: Low risk Full code March 18, 2025 Patient exhibiting signs of alcohol withdrawal. Noted to be tachycardic heart rate at 107 at the time of assessment. EKG taken this morning with sinus tachycardia. Also has coarse tremors, appearing restless. He is receiving Ativan per CIWA scale and Librium 25 mg p.o. every 8 hours. Closely continue to monitor. Additionally had 2 episodes of diarrhea today. Will check C. difficile. Patient sister updated about patient's alcohol withdrawal and current treatment plan. He will be transferred to neuro psychiatry unit for definitive management of suicidal ideation once he is improved from an alcohol withdrawal standpoint. PDMP PDMP Reviewed: Not Reviewed Attestations 2 Medical Necessity Statement*: Patient is going through alcohol withdrawal Coding Level of Care Code Acute Code for Chg Fwd Diagnoses Suicidal ideation R45.851 Alcohol use disorder F10.90 Alcoholic hepatitis K70.10
[2025-03-18 15:49] LABS: C.Diff PCR (Lab) NEGATIVE (Negative)
[2025-03-18] MEDS: metoprolol tartrate 25 mg Tablet PO (20:15)
[2025-03-18] MEDS: LORazepam 2 mg Tablet PO (20:15)
[2025-03-19 03:33] VITALS: BP 113/74; PULSE 87; RESP 19; TEMP 36.6; O2SAT 87
[2025-03-19 03:46] LABS: Basophils % 0.6 %; Eosinophils # 0.1 10^3/uL (0.0-0.8); Eosinophils % 1.3 %; Hematocrit 43.2 % (37-53); Lymphocytes # 1.2 10^3/uL (0.8-4.8); Lymphocytes % 19.5 %; Mean Corpuscular HGB Conc 34.3 g/dL (30-55); Mean Corpuscular Hemoglobin 32.8 pg (27-33); Mean Corpuscular Volume 95.8 fl (82-101); Mean Platelet Volume 10.3 fL (7.4-10.4); Monocytes # 0.8 10^3/uL (0.2-0.9); Monocytes % 12.7 %; Neutrophils # 4.04 10^3/uL (1.8-7.7); Neutrophils % 65.1 %; Nucleated Red Blood Cells % 0 %; Platelet Count 155 10^3/cmm (157-399); Red Blood Count 4.51 10^6/uL (3.85-5.65); Red Cell Distribution Width 13.5 % (12.1-15.1); White Blood Count 6.21 10^3/uL (3.29-11.43)
[2025-03-19 04:05] LABS: Alanine Aminotransferase 126 U/L (0-41); Albumin Level 3.1 g/dL (3.5-5.2); Alkaline Phosphatase 104 U/L (40-130); Anion Gap 14.7 (5-19); Aspartate Amino Transferase 86 U/L (0-40); Blood Urea Nitrogen 15 mg/dL (6-20); Calcium 8.9 mg/dL (8.5-10.5); Carbon Dioxide 26 mmol/L (22-29); Chloride 98 mmol/L (98-107); Creatinine Clr Calc Pharmacy 87.2527; Globulin 2.9 g/dL (1.3-4.6); Glomerular Filtration Rate 77.9 mL/min (90-130); Glucose 96 mg/dL (65-115); Osmolality Calculated 281 mOsm/kg (285-295); Potassium 3.7 mmol/L (3.5-5.1); Sodium 135 mmol/L (136-145); Total Bilirubin 0.7 mg/dL (0.15-1.2)
[2025-03-19 04:23] LABS: Ammonia 28 umol/L (16-60)
[2025-03-19 05:19] VITALS: PULSE 100
[2025-03-19 05:19] LABS: INR 0.89 (0.8-1.2)
[2025-03-19] MEDS: thiamine 100 mg Tablet PO (07:59)
[2025-03-19] MEDS: chlordiazePOXIDE 25 mg Capsule PO ×3 (07:59→23:25)
[2025-03-19] MEDS: nicotine 14 mg Patch 1 PATCH TRANSDERMA (07:59)
[2025-03-19] MEDS: pantoprazole DR 40 mg Tablet PO ×2 (07:59→20:49)
[2025-03-19] MEDS: metoprolol tartrate 25 mg Tablet PO ×2 (07:59→20:49)
[2025-03-19] MEDS: folic acid 1 mg Tablet PO (07:59)
[2025-03-19] MEDS: multivitamin therapeutic Tablet 1 TAB PO (07:59)
[2025-03-19 08:05] VITALS: BP 116/76; PULSE 94; RESP 16; TEMP 36.5; O2SAT 93
[2025-03-19 11:30] VITALS: BP 124/81; PULSE 81; RESP 14; TEMP 36.6; O2SAT 90
[2025-03-19] MEDS: LORazepam 2 mg Tablet PO (12:18)
--- NOTE | 2025-03-19 12:19 | PC.NURSE ---
Patent states he is feeling anxious about going to NPU, reports he does not feel tremors or shaking, visible shaking in patients hands. PO ativan given.
--- NOTE | 2025-03-19 13:35 | PM.PN ---
Subjective Subjective: Clinically better today with regards to his alcohol withdrawal. GIOVANAWA score of 2 on last check. Tolerating Librium 25 mg p.o. every 8 hours. Added metoprolol yesterday for tachycardia, heart rate today is much better controlled in the 80s. Last dose of oral Ativan was at 1218 today. He is not currently requiring any IV medications for the alcohol withdrawal. Medications: Reviewed: Yes Vitals/I&O/Wt Last Vital Signs Temp 97.8 F 03/19/25 11:30 Pulse 81 03/19/25 11:30 Resp 14 03/19/25 11:30 BP 124/81 03/19/25 11:30 Pulse Ox 90 03/19/25 11:30 O2 Del Method Room Air 03/19/25 11:30 03/18/25 03/19/25 03/19/25 22:59 06:59 14:59 Intake Total 610 / 1250 800 / 2050 458 / 458 Output Total Balance 610 / 1250 799 / 2049 458 / 458 Weight last 48 hrs Weight 69.672 kg Weight 69.354 kg Weight 69.445 kg Physical Exam Narrative: General: No acute distress, AO x3 HEENT: PERRLA, pupils bilaterally equal and reactive, pallors not present Chest: Normal vesicular breath sounds, no added sounds, equal good air entry bilaterally CVS: S1-S2 regular, no murmurs, no tachycardia, no gallops, no rubs Abdomen: Soft, nontender, no organomegaly, bowel sounds present Neuro: No focal deficits, no facial deformity, AO x3, power 5/5 in all limbs Data 03/19/25 03:25 03/19/25 03:25 A&P Assessment and plan (1) Suicidal ideation: (2) Alcohol use disorder: (3) Alcoholic hepatitis: Plan 55-year-old male with a history of alcohol abuse disorder currently presented to the hospital with suicidal ideation. He is being admitted to the hospital for definitive management of suicidal ideation. He is found to be intoxicated with alcohol with a blood alcohol level of over 300 at this time. At the time my assessment his heart rate is 121 bpm in a sinus rhythm, anticipate early signs of alcohol withdrawal. Patient is being admitted to the medicine service before being transferred to neuropsychiatrist service due to management of alcohol withdrawal. Admit to MedSurg CIWA's monitoring As needed Ativan based on CIWA scores per CIWA protocol. Start Librium 25 mg p.o. every 8 hours Noted deranged LFTs, likely to be alcoholic hepatitis. Ultrasound from 1 year ago showed diffuse fatty liver, possibly early signs of cirrhosis but do no definite evidence at that time. DVT prophylaxis: Low risk Full code March 18, 2025 Patient exhibiting signs of alcohol withdrawal. Noted to be tachycardic heart rate at 107 at the time of assessment. EKG taken this morning with sinus tachycardia. Also has coarse tremors, appearing restless. He is receiving Ativan per CIWA scale and Librium 25 mg p.o. every 8 hours. Closely continue to monitor. Additionally had 2 episodes of diarrhea today. Will check C. difficile. Patient sister updated about patient's alcohol withdrawal and current treatment plan. He will be transferred to neuro psychiatry unit for definitive management of suicidal ideation once he is improved from an alcohol withdrawal standpoint. D3 2024 CIWA score of 2. Patient is not currently requiring any IV medications for alcohol withdrawal. Tolerating Librium 25 mg p.o. every 8 hours. Will start tapering over the next 24 hours. Hepatitis screen with negative surface antigen, negative hep A IgM antibody, negative hep C screen. Equivocal core antibody, likely vaccine customer representative of old infection versus false positivity. No urgent intervention needed in this regard. Patient is stable from a medicine standpoint to be transferred to the neuropsychiatry unit today. Continue daily thiamine supplementation at 100 mg p.o. daily. Resume home dose of citalopram. PDMP PDMP Reviewed: Not Reviewed Attestations Medical Necessity Statement*: Stable for transfer to neuropsychiatry unit today for continued treatment of suicidal thoughts, currently with low CIWA scores, not needing any IV withdrawal medication, plan to taper Librium over the next 24 hours. Coding Level of Care Code Acute Code for Chg Fwd Diagnoses Suicidal ideation R45.851 Alcohol use disorder F10.90 Alcoholic hepatitis K70.10
[2025-03-19 16:05] VITALS: BP 116/84; PULSE 84; RESP 12; TEMP 36.9; O2SAT 90
--- NOTE | 2025-03-19 16:57 | PC.NURSE ---
Patient is very pleasant, calm, states he has no desire to harm himself. Expresses he would like to transfer to NPU to complete stay at hospital and go home. Patient is resting in bed majority of shift. Patient did express anxiety and could be seen shaking around the lunch hour. Patient stated he was becoming very anxious about moving to NPU. CIWA remains low.
--- NOTE | 2025-03-19 17:02 | P.NPUPN_ITS ---
Subjective NPU 2 Subjective: Patient presented today reporting that things were going fine. He did report feeling really tired today and exhausted but being hopeful that the treatment team can assist him in getting better so he does not have to go through this again. We discussed that the other unit physician would be returning tomorrow and that they would be able to work with the social work team on Friday for consideration for rehab moving forward. He denied side effects to the medication Mental Status Exam 2 MSE Comments: This is a well-nourished well-developed white male in hospital gown with adequate grooming and eye contact. No abnormal movements except for mild psychomotor retardation. Cooperative with exam and mild to moderate distress. Speech was slightly decreased rate and volume. Mood described as depressed, affect congruent. Thought process organized. Thought content: Patient endorsed concerns for suicidal actions leading to him coming to the hospital but denied homicidal ideation, there were no delusions reported or noted, he denied any auditory or visual hallucinations. No current thoughts to hurt or kill self; patient wants to get past current issues. No current thoughts to hurt or kill anyone else. Mood described as tired and weak. Stressors include loneliness, isolation, recent increase in alcohol consumption, and fear of job loss. Attention and concentration were intact and memory was mostly reliable but no more formally tested. He is alert and oriented x 3. Insight and judgment appear fair impulse control impaired. Vitals/I&O/Wt Last Vital Signs Temp 98.5 F 03/19/25 16:05 Pulse 84 03/19/25 16:05 Resp 12 03/19/25 16:05 BP 116/84 03/19/25 16:05 Pulse Ox 90 03/19/25 16:05 O2 Del Method Room Air 03/19/25 16:05 03/19/25 03/19/25 03/19/25 06:59 14:59 22:59 Intake Total 800 / 0 458 / 458 Output Total Balance 799 / 9 458 / 458 Weight last 48 hrs Weight 69.672 kg Weight 69.354 kg Weight 69.445 kg Data NPU 03/19/25 03:25 03/19/25 03:25 A&P Assessment and plan (1) Alcohol withdrawal: (2) Anxiety and depression: (3) Alcohol use disorder: (4) Suicidal ideation: (5) Tobacco use disorder, continuous: Plan This is a 55-year-old white male with a long history of mental health and addiction issues with genetic loading for addiction issues who had recent rehab stint, but now has relapsed after a 6 month clean period. Alcohol use disorder is present, exacerbated by feelings of loneliness and grief following the of the patient's mother in 2017 and subsequent losses. There is a history of depression and anxiety, which have worsened over time. The patient has struggled with maintaining sobriety, with a recent increase in alcohol consumption following a breakup. There is a genetic predisposition to alcoholism, as evidenced by a family history of alcohol use disorder on the maternal side. Plan Recommend using the power of FMLA by reaching out to HR to understand the employment situation and protect job security. Suggest finding out the facts about FMLA and the employment situation before making any decisions. Encourage engagement in treatment and having plans, including accountability through support systems like AA. Advise against making assumptions about employment without knowing the facts, and recommend finding out the employment situation before making decisions. 1. Continue current medication. Recommend resuming antidepressant but going with Lexapro over Celexa giving more flexibility for titration. 2. Assist patient in finding out work status. 3. Continued evaluation in a psychiatric unit would be appropriate after he is medically cleared. 4. Encourage sober living treatment after discharge at the highest level of care to which he is willing to commit. 5. Get collateral information. 6. Agree with 96-hour hold. PDMP PDMP Reviewed: Not Reviewed Attestations NPU 2 Medical Necessity Statement*: Inpatient hospitalization is medically necessary and the clinically appropriate intervention at this time. We will consider medications and make changes as indicated. Patient will be in the hospital for over two midnights. Likely length of stay is 3-5 days. Coding Level of Care Code Acute Code for Chg Fwd Diagnoses Alcohol withdrawal F10.932 Complication of substance-induced condition: with perceptual disturbance Anxiety and depression F41.9; F32.A Alcohol use disorder F10.90 Suicidal ideation R45.851 Tobacco use disorder, continuous F17.209
--- NOTE | 2025-03-19 18:05 | PC.NURSE ---
Patient transferred to NPU via wheelchair on room air. All belongings left with staff at front desk attendant as was paper chart.
--- NOTE | 2025-03-19 18:56 | PC.NURSE ---
Admission assessment Patient came into the ED for alcohol withdrawal. Patient says that he drinks 18 to 24 cans of beer each night, enough to fall asleep. Patient completed program at [facility] in 2023, and was able to maintain his sobriety for 6 months, until his girlfriend broke up with him and he turned to drinking to cope. Patient works at [employer], day shift and because of his drinking, has been missing a lot of days. Patient reports that he wants to quit drinking. Patient denies suicide attempt and also suicidal ideation. Patient reports depression and anxiety. Patient denies AVH.
[2025-03-19 20:00] VITALS: BP 96/71; PULSE 98; RESP 18; O2SAT 98
[2025-03-20] VITALS (7 sets, daily range): BP systolic 111–126; BP diastolic 69–89; PULSE 74–109; RESP 16–18; TEMP 36.4–36.6; O2SAT 95–99; BMI 20.9
[2025-03-20] MEDS: chlordiazePOXIDE 25 mg Capsule PO ×3 (06:12→20:36)
[2025-03-20] MEDS: multivitamin therapeutic Tablet 1 TAB PO (09:03)
[2025-03-20] MEDS: nicotine 14 mg Patch 1 PATCH TRANSDERMA (09:03)
[2025-03-20] MEDS: pantoprazole DR 40 mg Tablet PO ×2 (09:03→18:03)
[2025-03-20] MEDS: metoprolol tartrate 25 mg Tablet PO (09:04)
[2025-03-20] MEDS: citalopram 20 mg Tablet 30 MG PO (09:04)
[2025-03-20] MEDS: folic acid 1 mg Tablet PO (09:04)
[2025-03-20] MEDS: thiamine 100 mg Tablet PO (09:04)
[2025-03-20] MEDS: acetaminophen 325 mg Tablet 650 MG PO (14:53)
--- NOTE | 2025-03-20 15:20 | P.NPUPN_ITS ---
Subjective NPU 2 Subjective: 55-year-old male with a history of alcoh ol dependence along with depression and anxiety admitted with increased alcohol consumption and suicidal ideation. He continued to report significant consequences from his alcohol use including elevated liver function test and complaints of black tarry stools. Patient had stated that he was concerned that he may lose his job. He had reported previous trial of naltrexone and Vivitrol IM had been unsuccessful at reducing his cravings for alcohol. He had reported his longest period of sobriety had been 6 months but reports after a break-up with his girlfriend he had consumed alcohol at an increased level. He had reported drinking approximately 18-24 beers per day. He had reported difficulties with fatigue. He had continued to endorse hopelessness and depression. He had stated that he had some support from his daughter who was coming here today to visit the patient. Patient had endorsed recent admission in 2022 to [facility] (an inpatient substance abuse facilility). Mental Status Exam 2 MSE Comments: This is a well-nourished well-developed white male in hospital gown with adequate grooming and eye contact. No abnormal movements except for mild psychomotor retardation. Cooperative with exam and mild to moderate distress. Speech was slightly decreased in rate and volume. Mood described as depressed, affect was mood congruent and flat. . Thought process organized. there were no delusions reported or noted, he denied any auditory or visual hallucinations. patient wants to get past current issues. He denied homicidal or suicidal ideation but endorsed suicidal ideation when arriving at [facility]. Stressors include loneliness, isolation, recent increase in alcohol consumption, and fear of job loss. Attention and concentration were intact and memory was mostly reliable but no more formally tested. He is alert and oriented x 3. Insight and judgment appear fair impulse control impaired. Vitals/I&O/Wt Last Vital Signs Temp 97.8 F 03/20/25 04:00 Pulse 92 03/20/25 12:00 Resp 16 03/20/25 12:00 BP 112/69 03/20/25 12:00 Pulse Ox 98 03/20/25 12:00 O2 Del Method Room Air 03/20/25 04:00 Weight last 48 hrs Weight 68.039 kg Weight 69.672 kg Data NPU 03/19/25 03:25 03/19/25 03:25 A&P Assessment and plan (1) Alcohol withdrawal: (2) Anxiety and depression: (3) Alcohol use disorder: (4) Suicidal ideation: (5) Tobacco use disorder, continuous: Plan This is a 55-year-old white male with a long history of mental health and addiction issues with genetic loading for addiction issues who had recent rehab stint, but now has relapsed after a 6 month clean period. Alcohol use disorder is present, exacerbated by feelings of loneliness and grief following the of the patient's mother in 2017 and subsequent losses. There is a history of depression and anxiety, which have worsened over time. The patient has struggled with maintaining sobriety, with a recent increase in alcohol consumption following a breakup. There is a genetic predisposition to alcoholism, as evidenced by a family history of alcohol use disorder on the maternal side. Plan Recommend using the power of FMLA by reaching out to HR to understand the employment situation and protect job security. Suggest finding out the facts about FMLA and the employment situation before making any decisions. Encourage engagement in treatment and having plans, including accountability through support systems like AA. Advise against making assumptions about employment without knowing the facts, and recommend finding out the employment situation before making decisions. 1. Continue Celexa 30mg daily with further titration planned. 2. Assist patient in finding out work status. 3. Continued evaluation in a psychiatric unit would be appropriate after he is medically cleared. 4. Encourage sober living treatment after discharge at the highest level of care to which he is willing to commit. 5. Get collateral information. 6. Agree with 96-hour hold. PDMP PDMP Reviewed: Not Reviewed Involuntary Hold Information 2 Hold Status: Legal Status: 96 Hour Hold Date/Time Hold Expires: 03/23/25@1330 Attestations NPU 2 Medical Necessity Statement*: Inpatient hospitalization is medically necessary and the clinically appropriate intervention at this time. We will consider medications and make changes as indicated. Patient's likely length of stay is 4-6 days. Coding Level of Care Code Acute Code for [facility] Fwd Diagnoses Alcohol withdrawal F10.932 Complication of substance-induced condition: with perceptual disturbance Anxiety and depression F41.9; F32.A Alcohol use disorder F10.90 Suicidal ideation R45.851 Tobacco use disorder, continuous F17.209
[2025-03-20 19:34] LABS: Hematocrit 43.2 % (37-53)
[2025-03-20] MEDS: metoprolol tartrate 25 mg Tablet 12.5 MG PO (20:36)
[2025-03-20] MEDS: sucralfate 1 gm Tablet PO (20:36)
[2025-03-21 03:58] VITALS: BP 124/84; PULSE 93; RESP 16; O2SAT 96
[2025-03-21 08:00] VITALS: BP 117/81; PULSE 102; RESP 16; TEMP 36.6; O2SAT 96
[2025-03-21 08:03] LABS: Basophils % 0.7 %; Eosinophils # 0.1 10^3/uL (0.0-0.8); Eosinophils % 1.7 %; Hematocrit 43.7 % (37-53); Lymphocytes # 1.5 10^3/uL (0.8-4.8); Lymphocytes % 24.9 %; Mean Corpuscular HGB Conc 33.4 g/dL (30-55); Mean Corpuscular Hemoglobin 32.2 pg (27-33); Mean Corpuscular Volume 96.5 fl (82-101); Mean Platelet Volume 9.9 fL (7.4-10.4); Monocytes # 0.9 10^3/uL (0.2-0.9); Monocytes % 15.1 %; Neutrophils # 3.26 10^3/uL (1.8-7.7); Neutrophils % 56.1 %; Nucleated Red Blood Cells % 0 %; Platelet Count 177 10^3/cmm (157-399); Red Blood Count 4.53 10^6/uL (3.85-5.65); Red Cell Distribution Width 13.5 % (12.1-15.1); White Blood Count 5.82 10^3/uL (3.29-11.43)
[2025-03-21 08:24] LABS: Alanine Aminotransferase 99 U/L (0-41); Albumin Level 2.8 g/dL (3.5-5.2); Alkaline Phosphatase 82 U/L (40-130); Aspartate Amino Transferase 62 U/L (0-40); Blood Urea Nitrogen 10 mg/dL (6-20); Calcium 8.5 mg/dL (8.5-10.5); Carbon Dioxide 24 mmol/L (22-29); Chloride 102 mmol/L (98-107); Creatinine Clr Calc Pharmacy 123.5629; Globulin 3.3 g/dL (1.3-4.6); Glomerular Filtration Rate 117.5 mL/min (90-130); Glucose 93 mg/dL (65-115); Osmolality Calculated 281 mOsm/kg (285-295); Sodium 136 mmol/L (136-145); Total Bilirubin 0.6 mg/dL (0.15-1.2); Total Protein 6.1 g/dL (6.6-8.7)
[2025-03-21] MEDS: sucralfate 1 gm Tablet PO ×4 (08:33→20:38)
[2025-03-21] MEDS: thiamine 100 mg Tablet PO (08:33)
[2025-03-21] MEDS: metoprolol tartrate 25 mg Tablet 12.5 MG PO ×2 (08:33→20:38)
[2025-03-21] MEDS: citalopram 20 mg Tablet 30 MG PO (08:33)
[2025-03-21] MEDS: pantoprazole DR 40 mg Tablet PO ×2 (08:34→16:51)
[2025-03-21] MEDS: chlordiazePOXIDE 25 mg Capsule PO ×3 (08:34→20:38)
[2025-03-21] MEDS: folic acid 1 mg Tablet PO (08:34)
[2025-03-21] MEDS: multivitamin therapeutic Tablet 1 TAB PO (08:34)
[2025-03-21] MEDS: nicotine 14 mg Patch 1 PATCH TRANSDERMA (08:34)
[2025-03-21 11:42] VITALS: BP 131/88; PULSE 96; RESP 16; TEMP 36.8; O2SAT 96
[2025-03-21] MEDS: LORazepam 2 mg Tablet PO (11:42)
--- NOTE | 2025-03-21 14:34 | PM.MISC ---
Miscellaneous Note Note: Hemoglobin stable at 14.0. Will check CBC every 12 hours for 3 more checks. Await liver ultrasound.
--- NOTE | 2025-03-21 14:43 | PC.NURSE ---
1430 off unit for ultrasound accompanied by Staff and Security
--- NOTE | 2025-03-21 14:45 | PC.NURSE ---
pt back on unit from ultrasound.
[2025-03-21 15:29] LABS: Basophils # 0.1 10^3/uL (0.0-0.1); Basophils % 0.8 %; Eosinophils # 0.1 10^3/uL (0.0-0.8); Eosinophils % 1.3 %; Hematocrit 43.5 % (37-53); Lymphocytes # 1.4 10^3/uL (0.8-4.8); Lymphocytes % 23.1 %; Mean Corpuscular HGB Conc 33.8 g/dL (30-55); Mean Corpuscular Hemoglobin 32.6 pg (27-33); Mean Corpuscular Volume 96.5 fl (82-101); Mean Platelet Volume 9.7 fL (7.4-10.4); Monocytes # 1.1 10^3/uL (0.2-0.9); Monocytes % 18.2 %; Neutrophils # 3.32 10^3/uL (1.8-7.7); Neutrophils % 54.8 %; Nucleated Red Blood Cells % 0 %; Platelet Count 180 10^3/cmm (157-399); Red Blood Count 4.51 10^6/uL (3.85-5.65); Red Cell Distribution Width 13.4 % (12.1-15.1); White Blood Count 6.06 10^3/uL (3.29-11.43)
[2025-03-21 16:00] VITALS: BP 120/87; PULSE 97; RESP 16; TEMP 36.6; O2SAT 96
--- NOTE | 2025-03-21 16:45 | P.NPUPN_ITS ---
Subjective NPU 2 Subjective: 55-year-old male with a history of alcoh ol dependence along with depression and anxiety admitted with increased alcohol consumption and suicidal ideation. The patient remained on Librium and had required no additional benzodiazepines and reported no withdrawal symptoms. He had continued report hope of going to an inpatient substance abuse treatment center. He had been isolative on the milieu. He had denied any depression currently. He had continued to report cravings for alcohol. The patient had reported black tarry stools and was scheduled for an ultrasound of the abdomen today. Mental Status Exam 2 MSE Comments: This is a thin white male in hospital gown with adequate grooming and eye contact. No abnormal movements except for mild psychomotor retardation. Cooperative with exam and mild to moderate distress. Speech was slightly decreased in rate and volume. Mood described as depressed, affect was mood congruent and flat. . Thought process was linear and organized. there were no delusions reported or noted, he denied any auditory or visual hallucinations. patient wants to get past current issues. He denied homicidal or suicidal ideation but endorsed suicidal ideation when arriving at hospital. Stressors include loneliness, isolation, recent increase in alcohol consumption, and fear of job loss. Attention and concentration were intact and memory was mostly reliable but no more formally tested. He is alert and oriented x 3. Insight and judgment appear fair impulse control impaired. Vitals/I&O/Wt Last Vital Signs Temp 98 F 03/21/25 16:00 Pulse 97 03/21/25 16:00 Resp 16 03/21/25 16:00 BP 120/87 03/21/25 16:00 Pulse Ox 96 03/21/25 16:00 O2 Del Method Room Air 03/21/25 16:00 Weight last 48 hrs Weight 68.084 kg Weight 68.039 kg Data NPU 03/21/25 15:20 03/21/25 07:53 A&P Assessment and plan (1) Alcohol withdrawal: (2) Anxiety and depression: (3) Alcohol use disorder: (4) Suicidal ideation: (5) Tobacco use disorder, continuous: Plan This is a 55-year-old white male with a long history of mental health and addiction issues with genetic loading for addiction issues who had recent rehab stint, but now has relapsed after a 6 month clean period. Alcohol use disorder is present, exacerbated by feelings of loneliness and grief following the of the patient's mother in 2017 and subsequent losses. There is a history of depression and anxiety, which have worsened over time. The patient has struggled with maintaining sobriety, with a recent increase in alcohol consumption following a breakup. There is a genetic predisposition to alcoholism, as evidenced by a family history of alcohol use disorder on the maternal side. Plan Recommend using the power of FMLA by reaching out to HR to understand the employment situation and protect job security. Suggest finding out the facts about FMLA and the employment situation before making any decisions. Encourage engagement in treatment and having plans, including accountability through support systems like AA. Advise against making assumptions about employment without knowing the facts, and recommend finding out the employment situation before making decisions. 1. Increase Celexa 40mg daily. Continue Librium as prescribed. 2. Assist patient in finding out work status. 3. Continued evaluation in a psychiatric unit would be appropriate after he is medically cleared. 4. Encourage sober living treatment after discharge at the highest level of care to which he is willing to commit. 5. Get collateral information. 6. Agree with 96-hour hold. PDMP PDMP Reviewed: Not Reviewed Involuntary Hold Information 2 Hold Status: Legal Status: 96 Hour Hold Date/Time Hold Expires: 03/23/25@1330 Attestations NPU 2 Medical Necessity Statement*: Inpatient hospitalization is medically necessary and the clinically appropriate intervention at this time. We will consider medications and make changes as indicated. Patient's likely length of stay is 4-6 days. Coding Level of Care Code Acute Code for Chg Fwd Diagnoses Alcohol withdrawal F10.932 Complication of substance-induced condition: with perceptual disturbance Anxiety and depression F41.9; F32.A Alcohol use disorder F10.90 Suicidal ideation R45.851 Tobacco use disorder, continuous F17.209
--- NOTE | 2025-03-21 16:50 | US_ITS ---
WS: [id number] RIGHT UPPER QUADRANT ULTRASOUND HISTORY: evaluate for cirrhosis COMPARISON: 04/10/2024 Liver: 18.3 cm in length. Mildly enlarged liver. Surface of the liver is fatty slightly nodular. No significant progression since the prior study. Mild variable echogenicity within the liver. No mass. Portal Vein: Normal hepatopetal flow with monophasic waveform. Gallbladder: Normally distended gallbladder. Nonshadowing soft tissue focus within the gallbladder lumen measures 9 x 6 x 5 mm. This may be a small polyp or tumefactive sludge. There is no increased vascularity. CBD: 0.6 cm Pancreas: Obscured. Right kidney: 8.8 cm in length. Normal size and echogenicity. No hydronephrosis or mass. Aorta and IVC: Unremarkable abdominal aorta and IVC. No ascites. US/US liver [id number] IMPRESSION: 1. Mildly enlarged liver with hepatic steatosis. Surface of the liver is sligh tly in undulating and nodular which can be seen with cirrhosis. 2. No cholelithiasis. Soft tissue focus in the gallbladder may be a small poly p or tumefactive sludge. New since 04/10/2024.
[2025-03-21 19:24] VITALS: BP 114/80; PULSE 89; RESP 15; TEMP 36.6; O2SAT 95
[2025-03-21 23:39] VITALS: BP 114/75; PULSE 80; RESP 14; TEMP 36.8; O2SAT 95
[2025-03-22 04:00] VITALS: BP 119/79; PULSE 77; RESP 16; TEMP 36.9; O2SAT 95
[2025-03-22 08:00] VITALS: RESP 17
[2025-03-22 08:12] LABS: Basophils # 0.1 10^3/uL (0.0-0.1); Eosinophils # 0.1 10^3/uL (0.0-0.8); Eosinophils % 1.7 %; Hematocrit 48.8 % (37-53); Lymphocytes % 27.9 %; Mean Corpuscular HGB Conc 32.8 g/dL (30-55); Mean Corpuscular Hemoglobin 32.7 pg (27-33); Mean Corpuscular Volume 99.6 fl (82-101); Mean Platelet Volume 9.5 fL (7.4-10.4); Monocytes # 1.3 10^3/uL (0.2-0.9); Monocytes % 18.3 %; Neutrophils # 3.41 10^3/uL (1.8-7.7); Nucleated Red Blood Cells % 0 %; Platelet Count 209 10^3/cmm (157-399); Red Cell Distribution Width 13.5 % (12.1-15.1); White Blood Count 6.98 10^3/uL (3.29-11.43)
[2025-03-22] MEDS: multivitamin therapeutic Tablet 1 TAB PO (08:35)
[2025-03-22] MEDS: pantoprazole DR 40 mg Tablet PO ×2 (08:35→18:01)
[2025-03-22] MEDS: metoprolol tartrate 25 mg Tablet 12.5 MG PO ×2 (08:35→20:23)
[2025-03-22] MEDS: thiamine 100 mg Tablet PO (08:35)
[2025-03-22] MEDS: folic acid 1 mg Tablet PO (08:35)
[2025-03-22] MEDS: nicotine 14 mg Patch 1 PATCH TRANSDERMA (08:35)
[2025-03-22] MEDS: chlordiazePOXIDE 25 mg Capsule PO ×3 (08:36→18:01)
[2025-03-22] MEDS: citalopram 20 mg Tablet 40 MG PO (08:36)
[2025-03-22] MEDS: sucralfate 1 gm Tablet PO ×4 (08:38→20:21)
[2025-03-22 12:00] VITALS: BP 93/61; PULSE 75; RESP 17; TEMP 36.4; O2SAT 97
--- NOTE | 2025-03-22 15:32 | W.PM.NPUPNS ---
Subjective NPU Subjective: 55-year-old male with a history of alcohol dependence along with depression and anxiety admitted with increased alcohol consumption and suicidal ideation. The patient continued to remain on Librium with no withdrawal symptoms reported. He had reported depression but denied any suicidal thoughts. He had expressed desire to consider outpatient alcohol related treatment in place of inpatient treatment despite there being significant complications and problems associated with his continued alcohol use. Ultrasound had revealed an enlarged liver and sludging of the gallbladder. Mental Status Exam MSE Comments: This is a thin white male in hospital gown with adequate grooming and eye contact. No abnormal movements except for mild psychomotor retardation. He was cooperative with exam and mild to moderate distress. Speech was slightly decreased in rate and volume. Mood described as okay. Affect was mood incongruent and flat. He appeared anergic. Thought process was linear and organized. there were no delusions reported or noted, he denied any auditory or visual hallucinations. patient wants to get past current issues. He denied homicidal or suicidal ideation but endorsed suicidal ideation when arriving at hospital. Stressors include loneliness, isolation, recent increase in alcohol consumption, and fear of job loss. Attention and concentration were intact and memory was mostly reliable but no more formally tested. He is alert and oriented x 3. Insight and judgment appear fair impulse control impaired. Vitals/I&O/Wt Last Vital Signs Temp 97.6 F 03/22/25 12:00 Pulse 75 03/22/25 12:00 Resp 17 03/22/25 12:00 BP 93/61 03/22/25 12:00 Pulse Ox 97 03/22/25 12:00 O2 Del Method Room Air 03/22/25 12:00 03/22/25 03/22/25 03/22/25 06:59 14:59 22:59 Intake Total 100 / 100 Output Total Balance 99 / 99 Weight last 48 hrs Weight 68.084 kg Weight 68.084 kg Data NPU 03/22/25 08:07 03/21/25 07:53 A&P Assessment and plan (1) Alcohol withdrawal: (2) Anxiety and depression: (3) Alcohol use disorder: (4) Suicidal ideation: (5) Tobacco use disorder, continuous: Plan This is a 55-year-old white male with a long history of mental health and addiction issues with genetic loading for addiction issues who had recent rehab stint, but now has relapsed after a 6 month clean period. Alcohol use disorder is present, exacerbated by feelings of loneliness and grief following the of the patient's mother in 2017 and subsequent losses. There is a history of depression and anxiety, which have worsened over time. The patient has struggled with maintaining sobriety, with a recent increase in alcohol consumption following a breakup. There is a genetic predisposition to alcoholism, as evidenced by a family history of alcohol use disorder on the maternal side. Plan Recommend using the power of FMLA by reaching out to HR to understand the employment situation and protect job security. Suggest finding out the facts about FMLA and the employment situation before making any decisions. Encourage engagement in treatment and having plans, including accountability through support systems like AA. Advise against making assumptions about employment without knowing the facts, and recommend finding out the employment situation before making decisions. 1. Continue Celexa 40mg daily. Continue Librium as prescribed. 2. Assist patient in finding out work status. 3. Continued evaluation in a psychiatric unit would be appropriate after he is medically cleared. 4. Encourage sober living treatment after discharge at the highest level of care to which he is willing to commit. 5. Get collateral information. 6. Agree with 96-hour hold. PDMP PDMP Reviewed: Not Reviewed Involuntary Hold Information Hold Status: Legal Status: 96 Hour Hold Date/Time Hold Expires: 03/23/25 @13:30 Attestations U Medical Necessity Statement*: Inpatient hospitalization is medically necessary and the clinically appropriate intervention at this time. We will consider medications and make changes as indicated. Patient's likely length of stay is 1-2 days. Coding Level of Care Code Acute Code for [facility] Fwd Diagnoses Alcohol withdrawal F10.932 Complication of substance-induced condition: with perceptual disturbance Anxiety and depression F41.9; F32.A Alcohol use disorder F10.90 Suicidal ideation R45.851 Tobacco use disorder, continuous F17.209
[2025-03-22 16:00] VITALS: BP 115/77; PULSE 99; RESP 17; TEMP 36.5; O2SAT 98
[2025-03-22 19:49] VITALS: BP 121/81; PULSE 94; RESP 16; TEMP 36.6; O2SAT 97
[2025-03-22 21:11] LABS: Basophils # 0.1 10^3/uL (0.0-0.1); Basophils % 0.9 %; Eosinophils # 0.1 10^3/uL (0.0-0.8); Eosinophils % 0.9 %; Hematocrit 45.3 % (37-53); Lymphocytes # 1.7 10^3/uL (0.8-4.8); Mean Corpuscular HGB Conc 33.3 g/dL (30-55); Mean Corpuscular Hemoglobin 32.5 pg (27-33); Mean Corpuscular Volume 97.6 fl (82-101); Mean Platelet Volume 9.7 fL (7.4-10.4); Monocytes # 1.3 10^3/uL (0.2-0.9); Monocytes % 18.9 %; Neutrophils # 3.45 10^3/uL (1.8-7.7); Nucleated Red Blood Cells % 0 %; Platelet Count 231 10^3/cmm (157-399); Red Blood Count 4.64 10^6/uL (3.85-5.65); Red Cell Distribution Width 13.6 % (12.1-15.1); White Blood Count 6.63 10^3/uL (3.29-11.43)
[2025-03-23] VITALS: BP 118/75; PULSE 68; RESP 16; TEMP 36.5; O2SAT 99
[2025-03-23] MEDS: hyDROXYzine 25 mg Capsule 50 MG PO (02:11)
[2025-03-23 04:00] VITALS: BP 106/66; PULSE 121; RESP 18; TEMP 36.8; O2SAT 95
[2025-03-23] MEDS: sucralfate 1 gm Tablet PO ×3 (10:13→18:15)
[2025-03-23] MEDS: citalopram 20 mg Tablet 40 MG PO (10:14)
[2025-03-23] MEDS: metoprolol tartrate 25 mg Tablet 12.5 MG PO (10:14)
[2025-03-23] MEDS: pantoprazole DR 40 mg Tablet PO ×2 (10:14→18:15)
[2025-03-23] MEDS: multivitamin therapeutic Tablet 1 TAB PO (10:14)
[2025-03-23] MEDS: thiamine 100 mg Tablet PO (10:14)
[2025-03-23] MEDS: chlordiazePOXIDE 25 mg Capsule PO ×2 (10:15→18:15)
[2025-03-23] MEDS: folic acid 1 mg Tablet PO (10:15)
[2025-03-23] MEDS: nicotine 14 mg Patch 1 PATCH TRANSDERMA (10:16)
[2025-03-23 11:15] VITALS: BP 106/72; PULSE 79; RESP 18; TEMP 36.4; O2SAT 96
[2025-03-23 12:00] VITALS: BP 100/76; PULSE 79; TEMP 36.7; O2SAT 98
--- NOTE | 2025-03-23 13:37 | P.NPUDS_ITS ---
Diagnoses at Discharge Discharge Diagnosis (1) Alcohol withdrawal: Status: Acute Qualifiers: Complication of substance-induced condition: with perceptual disturbance Qualified Code(s): F10.932 - Alcohol use, unspecified with withdrawal with perceptual disturbance (2) Anxiety and depression: Status: Acute (3) Alcohol use disorder: Status: Acute (4) Suicidal ideation: Status: Acute (5) Tobacco use disorder, continuous: Status: Acute Reason for Visit Reason for Visit: detox Involuntary Hold Information Hold Status: Legal Status: 96 Hour Hold Date/Time Hold Expires: 03/23/25 @13:30 Discharge Data Studies Completed and Pending: Completed Studies During Hospitalization Category [place] [id number] Ro utine Ultrasound 03/21/25 16:50 Completed Pending at discharge Category Date Time Status Fecal Occult Bloo d [Immunochemical Fecal OCB] Stat Lab 03/20/25 16:56 Uncollected Radiology Impressions Liver Ultrasound 03/21/25 16:50 IMPRESSION: 1. Mildly enlarged liver with hepatic s teatosis. Surface of the liver is slightly in undulating and nodular which can be seen with cirrhosis. 2. No cholelithiasis. Soft tissue focus in the gallbladder may be a small polyp or tumefactive sludge. New since 04/10/2024. Laboratory Results WBC 6.63 10^3/uL (3.2 9-11.43) 03/22/25 20:45 RBC 4.64 10^6/uL (3.8 5-5.65) 03/22/25 20:45 Hgb 15.10 g/dL (11.27 -16.99) 03/22/25 20:45 Hct 45.3 % (37-53) 03/22/25 20:45 MCV 97.6 fl (82-101) 03/22/25 20:45 MCH 32.5 pg (27-33) 03/22/25 20:45 MCHC 33.3 g/dL (30-55) 03/22/25 20:45 RDW 13.6 % (12.1-15.1 ) 03/22/25 20:45 Plt Count 231 10^3/cmm (157 -399) 03/22/25 20:45 MPV 9.7 fL (7.4-10.4) 03/22/25 20:45 Neut % (Auto) 52.0 % 03/22/25 20:45 Lymph % (Auto) 25.0 % 03/22/25 20:45 [place] % (Auto) 18.9 % 03/22/25 20:45 Eos % (Auto) 0.9 % 03/22/25 20:45 Baso % (Auto) 0.9 % 03/22/25 20:45 Neut # (Auto) 3.45 10^3/uL (1.8 -7.7) 03/22/25 20:45 Lymph # (Auto) 1.7 10^3/uL (0.8- 4.8) 03/22/25 20:45 [place] # (Auto) 1.3 10^3/uL (0.2- 0.9) H 03/22/25 20:45 Eos # (Auto) 0.1 10^3/uL (0.0- 0.8) 03/22/25 20:45 Baso # (Auto) 0.1 10^3/uL (0.0- 0.1) 03/22/25 20:45 Nucleated RBC % (a uto) 0 % 03/22/25 20:45 Nucleated RBCs # 0.0 /100WBC 03/22/25 20:45 PT 12.70 SECONDS (12 .1-14.9) 03/19/25 05:00 INR 0.89 (0.8-1.2) 03/19/25 05:00 Sodium 136 mmol/L (136-1 45) 03/21/25 07:53 Potassium 4.0 mmol/L (3.5-5 .1) 03/21/25 07:53 Chloride 102 mmol/L (98-10 7) 03/21/25 07:53 Carbon Dioxide 24 mmol/L (22-29) 03/21/25 07:53 Anion Gap 14.0 (5-19) 03/21/25 07:53 BUN 10 mg/dL (6-20) 03/21/25 07:53 Creatinine 0.7 mg/dL (0.7-1. 2) 03/21/25 07:53 GFR Calculation 117.5 mL/min (90- 130) 03/21/25 07:53 Glucose 93 mg/dL (65-115) 03/21/25 07:53 Calculated Osmolal ity 281 mOsm/kg (285- 295) L 03/21/25 07:53 Calcium 8.5 mg/dL (8.5-10 .5) 03/21/25 07:53 Magnesium 1.8 mg/dL (1.7-2. 3) 03/17/25 11:50 Total Bilirubin 0.6 mg/dL (0.15-1 .2) 03/21/25 07:53 AST 62 U/L (0-40) H 03/21/25 07:53 ALT 99 U/L (0-41) H 03/21/25 07:53 Alkaline Phosphata se 82 U/L (40-130) 03/21/25 07:53 Ammonia 28 umol/L (16-60) 03/19/25 03:25 Total Protein 6.1 g/dL (6.6-8.7 ) L 03/21/25 07:53 Albumin 2.8 g/dL (3.5-5.2 ) L 03/21/25 07:53 Globulin 3.3 g/dL (1.3-4.6 ) 03/21/25 07:53 Urine Color Yellow (Yellow) 03/17/25 13:06 Urine Appearance Clear (CLEAR) 03/17/25 13:06 Urine pH 6.0 (5-7) 03/17/25 13:06 Ur Specific Gravit y 1.003 (1.005-1.0 30) L 03/17/25 13:06 Urine Protein Negative (Negati ve) 03/17/25 13:06 Urine Glucose (UA) Negative (Normal ) 03/17/25 13:06 Urine Ketones Negative (Negati ve) 03/17/25 13:06 Urine Blood Negative (Negati ve) 03/17/25 13:06 Urine Nitrate Negative (Negati ve) 03/17/25 13:06 Urine Bilirubin Negative (Negati ve) 03/17/25 13:06 Urine Urobilinogen 0.2 mg/dL (Negati ve) 03/17/25 13:06 Ur Leukocyte Yessy ase Negative (Negati ve) 03/17/25 13:06 Urine RBC 0-2 /hpf (0-2) 03/17/25 13:06 Urine WBC 0-5 /hpf (0-5) 03/17/25 13:06 Ur Squamous Epith Cells 0-5 /hpf (0-5) 03/17/25 13:06 Amorphous Sediment Not Reportable 03/17/25 13:06 Urine Bacteria None seen /hpf (N ONE) 03/17/25 13:06 Hyaline Casts 0.81 /lpf 03/17/25 13:06 Salicylates < 0.3 mg/dL (3-10 ) L 03/17/25 11:50 Acetaminophen < 5.0 ug/mL (10-3 0) L 03/17/25 11:50 Ethyl Alcohol 315 mg/dL (0-10) H* 03/17/25 11:50 C. difficile (PCR) Negative (Negati ve) 03/18/25 13:30 Hepatitis A IgM Ab Non-reactive (No nreactive) 03/17/25 11:50 Hep Bs Antigen Non-reactive (No nreactive) 03/17/25 11:50 Hep Bs Antibody < 3.5 (11.5-1000 ) L 03/17/25 11:50 Hep B Core Total A b Equivocal (Nonre active) A* 03/17/25 11:50 Hepatitis C Antibo dy Non-reactive (No nreactive) 03/17/25 11:50 Vitals: Last Vital Signs Temp 98.1 F 03/23/25 12:00 Pulse 79 03/23/25 12:00 Resp 18 03/23/25 11:15 BP 100/76 03/23/25 12:00 Pulse Ox 98 03/23/25 12:00 O2 Del Method Room Air 03/23/25 12:00 Discharge Plan Discharge Patient Disposition: Home Condition: Stable Prescriptions: No Action thiamine mononitrate (vit B1) [Vitamin B-1 (mononitrate)] 100 mg Tablet 100 mg PO DAILY Qty: 30 0RF citalopram 10 mg tablet 30 mg PO DAILY albuterol sulfate 90 mcg/actuation HFA aerosol inhaler 2 puff INHALATION Q6H PRN (Reason: Shortness Of Breath Or Wheezing) cholecalciferol (vitamin D3) 1,250 mcg (50,000 unit) capsule 50,000 unit PO Q7D Referrals: [facility] [Other] - 03/24/25 8:30 am Lissa Bingham DO [Primary Care Provider, Family Practice] Patient Instructions: Opioid Safety Coding Level of Care Code Acute Code for [facility] Fwd Diagnoses Alcohol withdrawal F10.932 Complication of substance-induced condition: with perceptual disturbance Anxiety and depression F41.9; F32.A Alcohol use disorder F10.90 Suicidal ideation R45.851 Tobacco use disorder, continuous F17.209
--- NOTE | 2025-03-23 15:30 | P.NPUPN_ITS ---
Subjective NPU 2 Subjective: 55-year-old male with a history of alcoh ol dependence along with depression and anxiety admitted with increased alcohol consumption and suicidal ideation. Patient denied any suicidal thoughts. He had reported some cravings for alcohol. The patient had reported some feelings of anxiety with the reduction in Librium but did not require any as needed medications for alcohol related withdrawal symptoms. He continued to report feeling tired. He reported a history of low motivation and reported that he had difficulties with managing stress without drinking alcohol. Mental Status Exam 2 MSE Comments: This is a thin white male in hospital gown with adequate grooming and eye contact. No abnormal movements except for mild psychomotor retardation. He was cooperative with exam and mild to moderate distress. Speech was slightly decreased in rate and volume. Mood described as okay. Affect was mood incongruent and flat. He appeared anergic. Thought process was linear and organized. there were no delusions reported or noted, he denied any auditory or visual hallucinations. patient wants to get past current issues. He denied homicidal or suicidal ideation today. Stressors include loneliness, isolation, recent increase in alcohol consumption, and fear of job loss. Attention and concentration were intact and memory was mostly reliable but no more formally tested. He is alert and oriented x 3. Insight and judgment appear fair impulse control impaired. Vitals/I&O/Wt Last Vital Signs Temp 98.1 F 03/23/25 12:00 Pulse 79 03/23/25 12:00 Resp 18 03/23/25 11:15 BP 100/76 03/23/25 12:00 Pulse Ox 98 03/23/25 12:00 O2 Del Method Room Air 03/23/25 12:00 Weight last 48 hrs Weight 68.084 kg Data NPU 03/22/25 20:45 03/21/25 07:53 A&P Assessment and plan (1) Alcohol withdrawal: (2) Anxiety and depression: (3) Alcohol use disorder: (4) Suicidal ideation: (5) Tobacco use disorder, continuous: Plan This is a 55-year-old white male with a long history of mental health and addiction issues with genetic loading for addiction issues who had recent rehab stint, but now has relapsed after a 6 month clean period. Alcohol use disorder is present, exacerbated by feelings of loneliness and grief following the of the patient's mother in 2017 and subsequent losses. There is a history of depression and anxiety, which have worsened over time. The patient has struggled with maintaining sobriety, with a recent increase in alcohol consumption following a breakup. There is a genetic predisposition to alcoholism, as evidenced by a family history of alcohol use disorder on the maternal side. Plan Recommend using the power of FMLA by reaching out to HR to understand the employment situation and protect job security. Suggest finding out the facts about FMLA and the employment situation before making any decisions. Encourage engagement in treatment and having plans, including accountability through support systems like AA. Advise against making assumptions about employment without knowing the facts, and recommend finding out the employment situation before making decisions. 1. Continue Celexa 40mg daily. Continue Librium beginning taper to 25mg bid x2 days then 25mg daily x 5 days. 2. Assist patient in finding out work status. 3. Continued evaluation in a psychiatric unit would be appropriate after he is medically cleared. 4. Encourage sober living treatment after discharge at the highest level of care to which he is willing to commit. 5. Get collateral information. 6. Agree with 96-hour hold. PDMP PDMP Reviewed: Last Reviewed 03/23/25 14:46 EDT by Jaspal Tidwell MD Involuntary Hold Information 2 Hold Status: Legal Status: 96 Hour Hold Date/Time Hold Expires: 03/23/25 @13:30 Attestations NPU 2 Medical Necessity Statement*: Inpatient hospitalization is medically necessary and the clinically appropriate intervention at this time. We will consider medications and make changes as indicated. Patient's likely length of stay is 1-2 days. Coding Level of Care Code Acute Code for g Fwd Diagnoses Alcohol withdrawal F10.932 Complication of substance-induced condition: with perceptual disturbance Anxiety and depression F41.9; F32.A Alcohol use disorder F10.90 Suicidal ideation R45.851 Tobacco use disorder, continuous F17.209
[2025-03-23 16:00] VITALS: BP 120/79; PULSE 71; TEMP 36.4; O2SAT 98
[2025-03-23 18:16] VITALS: BP 120/79; PULSE 71; RESP 18; TEMP 36.4; O2SAT 98
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
== END 2025-03-23 18:30 | disposition home or self-care (01) | DRG 897 ==
LOC: ER 13:37 → ER IP 15:31 → MEDSURG 17:09 → NP 03-19 18:04
PROVIDERS: Internal Medicine; Admitting Provider Student in an Organized Health Care Education/Training Program; Emergency Provider Emergency Medicine; PCP Family Medicine; Visit Provider Psychiatry & Neurology Psychiatry
DX: F10.229 Alcohol dependence with intoxication, unspecified (principal); R45.851 Suicidal ideations; K92.1 Melena; F10.232 Alcohol dependence with withdrawal with perceptual disturbance; K70.10 Alcoholic hepatitis without ascites; Y90.8 Blood alcohol level of 240 mg/100 ml or more; R25.1 Tremor, unspecified; F41.9 Anxiety disorder, unspecified; F32.A Depression, unspecified; F17.210 Nicotine dependence, cigarettes, uncomplicated; E78.00 Pure hypercholesterolemia, unspecified; R00.0 Tachycardia, unspecified; R19.7 Diarrhea, unspecified
CPT/HCPCS: 36415; 76705; 80053; 80307; 81001; 82140; 83735; 85014; 85018; 85025; 85610; 86705; 86706; 86709; 86803; 87340; 87493; 93005; 96372; 96374; 96375; 97165; 99285; J2405; J3411; J3490; J7120; J9999